=== PATIENT | female | born 1955 | race Caucasian/White ===

== ENCOUNTER 2017-04-13 11:17 | Emergency (ER) | payer OTHER ==
--- NOTE | 2017-04-13 11:35 | PDOC ---
History of Present Illness - General History Source: Patient, Family Exam Limitations: No Limitations - History of Present Illness Initial Comments: 04/13/17 13:18 Patient is a 61 year old female with a significant past medical history of Stroke (february), HTN who presents to the ED with complaints of neck pain and headache beginning 2 weeks prior. Patient reports headaches began two weeks prior but intensified today during shinto. She states intermediary episodes of nausea and and blurred vision secondary to the head pain. She reports pain feels similar to stroke in mid February in the [place]. Patient reports taking tylenol to relieve head pain, with last ingestion being yesterday. Denies Chest pain, SOB, lightheadedness. Denies vomiting, chills. Denies injuries, trauma. Denies any other symptoms. Allergies: N/A <Reji Mitchell - Last Filed: 04/13/17 13:18> <Kelley Dodson - Last Filed: 04/13/17 14:27> - General Chief Complaint: Lightheaded Stated Complaint: NEAR SYNCOPE Time Seen by Provider: 04/13/17 11:35 Past History <Reji Mitchell - Last Filed: 04/13/17 13:18> - Psycho/Social/Smoking Cessation Hx Suicidal Ideation: No Smoking History: Never smoked <Kelley Dodson - Last Filed: 04/13/17 14:27> - Past Medical History Allergies/Adverse Reactions: Allergies Allergy/AdvReac Type Severity Reaction Status Date / Time No Known Allergies Allergy Verified 04/13/17 11:27 Home Medications: Ambulatory Orders Amlodipine Besylate 5 mg PO DAILY 04/13/17 Atorvastatin Calcium 40 mg PO DAILY 04/13/17 Carvedilol [Coreg] 25 mg PO DAILY 04/13/17 Cephalexin [Keflex] 500 mg PO BID #6 capsule 04/13/17 Clopidogrel Bisulfate [Plavix -] 75 mg PO DAILY 04/13/17 Piracetam 1,200 mg PO DAILY 04/13/17 Review of Systems - Review of Systems Able to Perform ROS?: Yes Comments:: 04/13/17 13:18 GENERAL/CONSTITUTIONAL: No fever or chills. No weakness. HEAD, EYES, EARS, NOSE AND THROAT: + Headache.+Altered vision (secondary to headache). No ear pain or discharge. No sore throat. GASTROINTESTINAL: No nausea, vomiting, diarrhea or constipation. GENITOURINARY: No dysuria, frequency, or change in urination. CARDIOVASCULAR: No chest pain or shortness of breath. RESPIRATORY: No cough, wheezing, or hemoptysis. MUSCULOSKELETAL: No joint or muscle swelling or pain. No neck or back pain. SKIN: No rash NEUROLOGIC: No headache, vertigo, loss of consciousness, or change in strength/ sensation. ENDOCRINE: No increased thirst. No abnormal weight change. HEMATOLOGIC/LYMPHATIC: No anemia, easy bleeding, or history of blood clots. ALLERGIC/IMMUNOLOGIC: No hives or skin allergy. All Other Systems: Reviewed and Negative <Reji Mitchell - Last Filed: 04/13/17 13:18> *Physical Exam - Vital Signs Last Vital Signs Temp Pulse Resp BP Pulse Ox 97.5 F L 64 19 134/69 99 04/13/17 11:28 04/13/17 11:28 04/13/17 11:28 04/13/17 11:28 04/13/17 11:28 - Physical Exam Comments: 04/13/17 13:19 GENERAL: Awake, alert, and fully oriented, in no acute distress HEAD: + Tender palpations to left and right of trapezius. No meningeal signs No signs of trauma EYES: PERRLA, EOMI, sclera anicteric, conjunctiva clear ENT: Auricles normal inspection, hearing grossly normal, nares patent, oropharynx clear without exudates. Moist mucosa NECK: Normal ROM, supple, no lymphadenopathy, JVD, or masses BACK: No C spine or L spine tenderness LUNGS: Breath sounds equal, clear to auscultation bilaterally. No wheezes, and no crackles HEART: Regular rate and rhythm, normal S1 and S2, no murmurs, rubs or gallops ABDOMEN: Soft, nontender, normoactive bowel sounds. No guarding, no rebound. No masses EXTREMITIES: + 5/5 strength in all upper and lower extremities. Normal range of motion, no edema. No clubbing or cyanosis. No cords, erythema, or tenderness NEUROLOGICAL: Cranial nerves II through XII grossly intact. Normal speech, normal gait SKIN: Warm, Dry, normal turgor, no rashes or lesions noted. <Reji Mitchell - Last Filed: 04/13/17 13:18> - Vital Signs Last Vital Signs Temp Pulse Resp BP Pulse Ox 97.5 F L 64 19 134/69 99 04/13/17 11:28 04/13/17 11:28 04/13/17 11:28 04/13/17 11:28 04/13/17 11:28 <Kelley Dodson - Last Filed: 04/13/17 14:27> Heart Score/ECG Review - ECG Intrepretation Comment:: 04/13/17 12:10 sinus at 64, nl axis, nl interval, t wave inversions v2-3, no prior ekgs <Kelley Dodson - Last Filed: 04/13/17 14:27> ED Treatment Course - LABORATORY CBC & Chemistry Diagram: 04/13/17 12:00 04/13/17 11:49 - ADDITIONAL ORDERS Additional order review: Laboratory Results 04/13/17 04/13/17 04/13/17 12:03 12:03 11:49 Sodium 138 Potassium 4.0 Chloride 102 Carbon Dioxide 29 Anion Gap 7 L BUN 13 Creatinine 0.5 L Creat Clearance w eGFR > 60 Random Glucose 102 Calcium 8.9 Magnesium 2.0 Total Bilirubin 0.4 AST 40 H ALT 92 H Alkaline Phosphatase 119 H Creatine Kinase 112 Troponin I < 0.02 Total Protein 7.1 Albumin 3.9 Urine Color Straw Urine Appearance Clear Urine pH 7.0 Urine Protein Negative Urine Glucose (UA) Negative Urine Ketones Negative Urine Blood Negative Urine Nitrite Negative Urine Bilirubin Negative Urine Urobilinogen Negative Ur Leukocyte Esterase 1+ H 04/13/17 12:00 RBC 4.31 MCV 89.5 MCHC 34.1 RDW 12.9 MPV 8.3 Neutrophils % 75.9 Lymphocytes % 16.3 Monocytes % 5.7 Eosinophils % 1.5 Basophils % 0.6 - Medications Given in the ED: ED Medications Discontinued Medications Generic Name Dose Route Start Last Admin Trade Name Freq PRN Reason Stop Dose Admin Acetaminophen 975 mg 04/13/17 12:04 04/13/17 12:25 Tylenol - PO 04/13/17 12:05 975 mg ONCE ONE Administration Diphenhydramine HCl 12.5 mg 04/13/17 12:03 04/13/17 12:29 Benadryl Injection - IVPB 04/13/17 12:04 12.5 mg ONCE ONE Administration Metoclopramide HCl 10 mg 04/13/17 12:03 04/13/17 12:26 Reglan Injection - IVPB 04/13/17 12:04 10 mg ONCE ONE Administration Sodium Chloride 1,000 ml 04/13/17 12:03 04/13/17 12:15 Normal Saline - IV 04/13/17 12:04 1,000 ml ONCE ONE Administration <Reij Mitchell - Last Filed: 04/13/17 13:18> - LABORATORY CBC & Chemistry Diagram: 04/13/17 12:00 04/13/17 11:49 <Kelley Dodson - Last Filed: 04/13/17 14:27> Medical Decision Making - Medical Decision Making 04/13/17 13:08 a/p: 61yo female with worsening toribio x 2 weeks. No meningeal signs. No f/c. No recent illnesses. Doubt subarachnoid given gradual progression of TORIBIO and no thunderclap toribio. -ct head -labs -pain control -reassess -ekg given female, age, and nausea 04/13/17 14:14 re-eval: labs and ct reviewed with the patient. pt with mild UTI. will start abx. Pt states toribio and pain have resolved. No nausea. Pts abd soft. Pt denies RUQ pain. Discussed LFT findings. Pt states she will follow up with her PMD for further eval of mildly elevated LFT. Pt requesting to go home. Discussed all reasons to return to the ED and need for follow up. Answered all questions. Pt stable for d/c to home. Daughter and patient verbalize understanding of instructions. Neck supple. No meningeal signs. <Kelley Dodson - Last Filed: 04/13/17 14:27> *DC/Admit/Observation/Transfer - Attestations Scribe Attestion: 04/13/17 13:19 Documentation prepared by Reji Mitchell, acting as medical transcriber for Kelley Dodson DO, MD. <Reji Mitchell - Last Filed: 04/13/17 13:18> - Discharge Dispostion Admit: No - Attestations Physician Attestion: 04/13/17 11:35 I, Dr. Kelley Kurkowski, DO, attest that this document has been prepared under my direction and personally reviewed by me in its entirety. I further attest, that it accurately reflects all work, treatment, procedures and medical decision -making performed by me. 04/13/17 13:09 <Kelley Dodson - Last Filed: 04/13/17 14:27> Diagnosis at time of Disposition: UTI (urinary tract infection) Qualifiers: Urinary tract infection type: site unspecified Hematuria presence: without hematuria Qualified Code(s): N39.0 - Urinary tract infection, site not specified Cephalgia Qualifiers: Headache type: unspecified Headache chronicity pattern: unspecified pattern Intractability: not intractable Qualified Code(s): R51 - Headache - Discharge Dispostion Disposition: HOME Condition at time of disposition: Stable - Prescriptions Prescriptions: Cephalexin [Keflex] 500 mg PO BID #6 capsule - Referrals Referrals: Angelita Bhagat MD [Staff Physician] - - Patient Instructions Printed Discharge Instructions: DI for Headache Additional Instructions: Please take all meds as prescribed. Please follow up with your primary care physician this week. Please return to the ED with any further concerns.
[2017-04-13 11:36] VITALS: TEMP 97.5; BMI 28.1
[2017-04-13] MEDS ORDERED: METOCLOPRAMIDE HCL INJECTION 10 MG/2 ML VIAL IVPB ONE (12:03)
[2017-04-13] MEDS ORDERED: SODIUM CHLORIDE 0.9% 1000 ML INFUS.BAG IV ONE (12:03)
[2017-04-13] MEDS ORDERED: ACETAMINOPHEN 325 MG TABLET (FP) PO ONE (12:04)
--- NOTE | 2017-04-13 12:07 | EKG ---
Test Reason : Blood Pressure : / mmHG Vent. Rate : 064 BPM Atrial Rate : 064 BPM P-R Int : 176 ms QRS Dur : 084 ms QT Int : 426 ms P-R-T Axes : 032 046 050 degrees QTc Int : 439 ms NORMAL SINUS RHYTHM NONSPECIFIC T WAVE ABNORMALITY ABNORMAL ECG NO PREVIOUS ECGS AVAILABLE REPEAT EKG IF CLINICALLY INDICATED Confirmed by LIVAN COFFEY MD ([id number]) on 04/13/2017 12:06:48 PM Also confirmed by LIVAN COFFEY MD ([id number]) on 04/13/2017 12:13:17 PM Referred By: Confirmed By:LIVAN COFFEY MD
[2017-04-13] MEDS ORDERED: METOCLOPRAMIDE HCL INJECTION 10 MG/2 ML VIAL ONE (12:18)
[2017-04-13] MEDS ORDERED: ACETAMINOPHEN 325 MG TABLET (FP) ONE (12:18)
[2017-04-13 12:36] LABS: BASOPHIL 0.6 % (0-2.0); EOSINOPHIL 1.5 % (0-4.5); MCH 30.5 pg (25.7-33.7); MCHC 34.1 g/dl (32.0-36.0); MEAN CELL VOLUME 89.5 fl (80-96); MEAN PLT VOLUME 8.3 fl (7.5-11.1); NEUTROPHILS 75.9 % (42.8-82.8); PLATELET COUNT 231 K/MM3 (134-434); RDW 12.9 % (11.6-15.6); WHITE BLOOD COUNT 8.2 K/mm3 (4.0-10.0)
[2017-04-13 13:00] LABS: ALBUMIN 3.9 g/dl (3.4-5.0); ALK PHOS 119 U/L (45-117); ANION GAP 7 (8-16); BILIRUBIN,TOTAL 0.4 mg/dL (0.2-1.0); CALCIUM 8.9 mg/dL (8.5-10.1); CO2 29 mmol/L (21-32); CREATININE 0.5 mg/dL (0.55-1.02); GLUCOSE,RANDOM 102 mg/dL (74-106); SGOT/AST 40 U/L (15-37); SGPT/ALT 92 U/L (12-78); TOT PROT 7.1 g/dl (6.4-8.2)
[2017-04-13 13:03] LABS: CPK 112 IU/L (26-192); TROPONIN I < 0.02 ng/ml (0.00-0.05)
[2017-04-13 13:08] LABS: URINE APPEARANCE CLEAR; URINE BILIRUBIN NEGATIVE (NEGATIVE); URINE BLOOD NEGATIVE (NEGATIVE); URINE COLOR STRAW; URINE GLUCOSE (UA) NEGATIVE (NEGATIVE); URINE KETONE NEGATIVE (NEGATIVE); URINE NITRITE NEGATIVE (NEGATIVE); URINE PROTEIN NEGATIVE (NEGATIVE); URINE UROBILINOGEN NEGATIVE mg/dL (0.2-1.0)
[2017-04-13 13:16] LABS: URINE LEUK ESTERASE 1+ (NEGATIVE)
[2017-04-13 13:17] LABS: URINE RBC <1 /hpf (0-3); URINE WBC 4 /hpf (3-5)
[2017-04-13] MEDS ORDERED: CEPHALEXIN MONOHYDRATE 500 MG CAPSULE (UD) PO ONE (14:13)
[2017-04-13] MEDS ORDERED: IBUPROFEN 600 MG TABLET (FP) PO ONE ×2 (14:14→14:24)
[2017-04-13] MEDS ORDERED: CEPHALEXIN MONOHYDRATE 250 MG CAPSULE (FP) ONE (14:24)
[2017-04-13 14:44] VITALS: BP 136/72; PULSE 75
== END 2017-04-13 14:44 | disposition home or self-care (01) ==
LOC: JER 11:17
PROC: 3E033GC Introduction of Other Therapeutic Substance into Peripheral Vein, Percutaneous Approach (ICD-10-PCS; principal; 2017-04-13)
DX: R51 Headache (principal); N39.0 Urinary tract infection, site not specified
CPT/HCPCS: 36415; 70450-TC; 80053; 81003; 81015; 83735; 84484; 85025; 93005; 93010; 99283-25

== ENCOUNTER 2018-01-04 08:56 | Emergency (ER) | payer OTHER ==
[2018-01-04 09:02] VITALS: TEMP 98.3; BMI 25.9
--- NOTE | 2018-01-04 09:10 | PDOC ---
History of Present Illness - General Chief Complaint: Lightheaded Stated Complaint: DIZZINESS&NAUSEA Time Seen by Provider: 01/04/18 09:09 - History of Present Illness Initial Comments: 01/04/18 09:09 Ms. Brewster is a 62 yo female w/ pmh of HTN, HLD, arthritis who presents for evaluation of 1 day history of nausea with dizziness. She reports this started yesterday evening and she noted her BP to be elevated on her home BP cuff although she cannot recall the value. She further reports she has had urinary changes lately with only small amounts of urine coming out although she has been drinking her normal amount of fluids. The patient denies chest pain, shortness of breath, and headache. Denies fever, chills, nausea, vomit, diarrhea and constipation. Denies dysuria, frequency, urgency and hematuria. Allergies: NKDA Past History - Past Medical History Allergies/Adverse Reactions: Allergies Allergy/AdvReac Type Severity Reaction Status Date / Time No Known Allergies Allergy Verified 01/04/18 08:58 Home Medications: Ambulatory Orders Amlodipine Besylate 5 mg PO DAILY 04/13/17 Carvedilol [Coreg] 25 mg PO DAILY 04/13/17 Rosuvastatin Calcium 40 mg PO HS 07/19/17 Meclizine HCl [Antivert -] 25 mg PO TID PRN #21 tablet 01/04/18 COPD: No HTN: Yes Hypercholesterolemia: Yes Other medical history: ARTHRITIS - Suicide/Smoking/Psychosocial Hx Smoking History: Never smoked Review of Systems - Review of Systems Comments:: 01/04/18 09:09 GENERAL/CONSTITUTIONAL: No fever or chills. No weakness. HEAD, EYES, EARS, NOSE AND THROAT: No change in vision. No ear pain or discharge. No sore throat. CARDIOVASCULAR: No chest pain or shortness of breath RESPIRATORY: No cough, wheezing, or hemoptysis. GASTROINTESTINAL: +Nausea without vomiting, diarrhea or constipation. GENITOURINARY: +As described above; otherwise no dysuria, frequency, or change in urination. MUSCULOSKELETAL: No joint or muscle swelling or pain. No neck or back pain. SKIN: No rash NEUROLOGIC: +Dizziness as described. No headache, vertigo, loss of consciousness , or change in strength/sensation. ENDOCRINE: No increased thirst. No abnormal weight change HEMATOLOGIC/LYMPHATIC: No anemia, easy bleeding, or history of blood clots. ALLERGIC/IMMUNOLOGIC: No hives or skin allergy. 01/04/18 09:22 *Physical Exam - Vital Signs Last Vital Signs Temp Pulse Resp BP Pulse Ox 98.3 F 67 19 145/82 96 01/04/18 08:58 01/04/18 08:58 01/04/18 08:58 01/04/18 08:58 01/04/18 08:58 - Physical Exam Comments: 01/04/18 09:10 GENERAL: Awake, alert, and fully oriented, in no acute distress HEAD: No signs of trauma, normocephalic, atraumatic EYES: PERRLA, EOMI, sclera anicteric, conjunctiva clear ENT: Auricles normal inspection, hearing grossly normal, nares patent, oropharynx clear without exudates. Moist mucosa NECK: Normal ROM, supple, no lymphadenopathy, JVD, or masses LUNGS: No distress, speaks full sentences, clear to auscultation bilaterally HEART: Regular rate and rhythm, normal S1 and S2, no murmurs, rubs or gallops, peripheral pulses normal and equal bilaterally. ABDOMEN: Soft, nontender, normoactive bowel sounds. No guarding, no rebound. No masses EXTREMITIES: Normal inspection, Normal range of motion, no edema. No clubbing or cyanosis. NEUROLOGICAL: +Increased dizziness on attempting to track eyes left/right. Cranial nerves II through XII grossly intact. Normal speech, normal gait, no focal sensorimotor deficits SKIN: Warm, Dry, normal turgor, no rashes or lesions noted. ED Treatment Course - LABORATORY CBC & Chemistry Diagram: 01/04/18 09:24 01/04/18 09:24 Medical Decision Making - Medical Decision Making 01/04/18 12:05 Ms. Brewster is a 62 yo female w/ pmh as described presenting with symptoms c/w vertigo. EKG/Cardiac labs/Head CT sent to r/o acute process. Head CT negative, EKG unconcerning, labs grossly wnl as below. Patient reporting resolution of symptoms after 25mg of meclizine. D/C-ing w/ instructions to f/u with neurology for further evaluation. Patient verbalized understanding and agreement and will comply. *DC/Admit/Observation/Transfer Diagnosis at time of Disposition: Vertigo - Discharge Dispostion Disposition: HOME - Referrals Referrals: Angelita Bhagat MD [Primary Care Provider] - Alexander Garzon MD [Staff Physician] - - Patient Instructions Printed Discharge Instructions: DI for Vertigo Additional Instructions: You were seen in the ER today and diagnosed with vertigo. A prescription has been sent to your pharmacy for meclizine. Take medications as written. Follow- up with Neurology as discussed for further evaluation. Return to ER if any increased dizziness not controllable with medication, fever, chills, or any other concerning symptoms. Print Language: BULGARIAN - Post Discharge Activity
[2018-01-04] MEDS ORDERED: MECLIZINE HCL 25 MG TABLET (FP) PO ONE (09:23)
[2018-01-04] MEDS ORDERED: MECLIZINE HCL 25 MG TABLET (FP) ONE (09:29)
[2018-01-04 09:35] LABS: BASO % 1.1 % (0-2.0); EOS % 1.6 % (0-4.5); HEMATOCRIT 39.7 % (32.4-45.2); HEMOGLOBIN 13.3 GM/dL (10.7-15.3); LYMPH % 29.7 % (8-40); MCH 29.9 pg (25.7-33.7); MCHC 33.6 g/dl (32.0-36.0); MEAN CELL VOLUME 89.2 fl (80-96); MEAN PLT VOLUME 8.8 fl (7.5-11.1); MONO % 8.1 % (3.8-10.2); NEUT % 59.5 % (42.8-82.8); PLATELET COUNT 259 K/MM3 (134-434); RBC 4.44 M/mm3 (3.60-5.2); RDW 13.1 % (11.6-15.6); WHITE BLOOD COUNT 4.8 K/mm3 (4.0-10.0)
[2018-01-04] MEDS ORDERED: SODIUM CHLORIDE 1,000 ML IV STA (09:38)
--- NOTE | 2018-01-04 09:48 | PDOC ---
Attending Attestation - HPI HPI: 01/04/18 09:53 The patient is a 62 year old female with significant history of hypertension, hyperlipidemia, who presents to the ED complaining of a 1 day history of room- spinning dizziness. Dizziness is worse with movement, improved with rest, and associated with nausea. No vomiting. No headache, blurred vision, or numbness or tingling. No chest pain or shortness of breath. No fever or chills. PCP: Dr. Frances - Physicial Exam PE: 01/04/18 10:01 Vitals: Triage vital signs reviewed General Appearance: No acute distress, well nourished, well developed Head: Atraumatic Eyes: Pupils equal reactive round, extraocular movement intact Neck: Supple; No nuchal rigidity Chest Wall: Nontender Cardiac: Regular rate and rhythm, no murmurs, no rubs, no gallops Lungs: Clear to auscultation bilateral, good air movement bilaterally Abdomen: Soft, nondistended, normal bowel sounds, nontender to palpation Extremities: Full range of motion to all extremities, no cyanosis, clubbing, or edema Skin: Warm and dry, no rashes or lesions, no rash, no petechiae Neuro: +[place] Hallpike when head turned to the right. AOX3; Cranial Nerves 2-12 grossly intact, Strength intact to all extremities, Sensation intact to all extremities, gait deferred. Psych: Normal mood, normal affect - Medical Decision Making 01/04/18 10:03 Documentation prepared by Jennifer Davis, acting as medical office receptionist assistant for Rip Jorge MD. 62 year old female here with 1 day of vertigo that is worse with positional changes. Plan: Head CT, EKG, CBC, CMP, cardiac markers, UA Meclizine, Keara's maneuever, reassess 01/04/18 11:[address], reviewed and interpreted by Dr. Deras. Impression: No significant interval change or acute intracranial pathology is identified. Correlate clincically to determine further evaluation and follow up. <Jennifer Davis - Last Filed: 01/04/18 11:42> - Resident Resident Name: Gil Gage - ED Attending Attestation I have performed the following: I have examined & evaluated the patient, The case was reviewed & discussed with the resident, I agree w/resident's findings & plan, Exceptions are as noted - Medical Decision Making 01/04/18 17:03 History examination most consistent with benign positional vertigo. Positive Delaney -Hallpike on examination Status post IV fluids meclizine and several attempts at Keara maneuver patient feels much better. No ambulating around the emergency department comfortably with no symptoms. Labs CT all within normal limits. EKG nonischemic Patient discharged with neurology follow-up meclizine and instructions for Keara maneuver at home Findings, the need for follow-up, strict return instructions discussed with patient and family. <Rip Jorge - Last Filed: 01/04/18 17:05>
[2018-01-04 09:50] LABS: URINE APPEARANCE CLEAR; URINE BILIRUBIN NEGATIVE (<2.0 mg/dL); URINE COLOR LTYELLOW; URINE GLUCOSE (UA) NEGATIVE (NEGATIVE); URINE KETONE NEGATIVE (NEGATIVE); URINE LEUK ESTERASE NEGATIVE (NEGATIVE); URINE NITRITE NEGATIVE (NEGATIVE); URINE PROTEIN NEGATIVE (NEGATIVE); URINE UROBILINOGEN NEGATIVE mg/dL (0.2-1.0)
[2018-01-04 10:15] LABS: CHLORIDE 107 mmol/L (98-107); POTASSIUM 4.1 mmol/L (3.5-5.1); SODIUM 141 mmol/L (136-145)
[2018-01-04 10:38] LABS: ALK PHOS 136 U/L (45-117); ANION GAP 5 (8-16); BILIRUBIN,TOTAL 0.5 mg/dL (0.2-1.0); BLOOD UREA NITROGEN 12 mg/dL (7-18); CALCIUM 8.8 mg/dL (8.5-10.1); CO2 29 mmol/L (21-32); CREATININE 0.6 mg/dL (0.55-1.02); GLUCOSE,RANDOM 108 mg/dL (74-106); SGOT/AST 15 U/L (15-37); SGPT/ALT 26 U/L (12-78); TOT PROT 7.2 g/dl (6.4-8.2)
[2018-01-04 12:33] VITALS: BP 173/78; PULSE 75
--- NOTE | 2018-01-04 20:42 | EKG ---
Test Reason : Blood Pressure : / mmHG Vent. Rate : 058 BPM Atrial Rate : 058 BPM P-R Int : 180 ms QRS Dur : 086 ms QT Int : 442 ms P-R-T Axes : 055 044 052 degrees QTc Int : 433 ms SINUS BRADYCARDIA NONSPECIFIC T WAVE ABNORMALITY ABNORMAL ECG WHEN COMPARED WITH ECG OF 19-JUL-2017 22:52, NO SIGNIFICANT CHANGE WAS FOUND Confirmed by TD ESTEBAN MD ([id number]) on 01/04/2018 8:42:24 PM Referred By: Confirmed By:TD ESTEBAN MD
== END 2018-01-04 12:20 | disposition home or self-care (01) ==
LOC: JER 08:56
PROC: 3E0337Z Introduction of Electrolytic and Water Balance Substance into Peripheral Vein, Percutaneous Approach (ICD-10-PCS; principal; 2018-01-04)
DX: R42 Dizziness and giddiness (principal); I10 Essential (primary) hypertension; E78.5 Hyperlipidemia, unspecified; E78.00 Pure hypercholesterolemia, unspecified; M12.9 Arthropathy, unspecified
CPT/HCPCS: 36415; 70450-TC; 80053; 81003; 82550; 84484; 85025; 87086; 93005; 93010; 96360; 99285-25; J7030

== ENCOUNTER → 2018-06-30 | Day surgery (SDC) | payer OTHER ==
--- NOTE | 2018-07-03 09:47 | PATH ---
Cytology Non-Gynecological Report Patient Name: RON TURNER [facility]. Rec. #: [id number] /Age/Gender: 1955 (Age: 63) / F Account: [id number] Location: RADIOLOGY INTER Taken: 06/30/2018 Received: 06/30/2018 Reported: 07/03/2018 Physicians: Vincent Steward M.D. Specimen(s) Received LEFT THYROID FNA 2.77 X 1.84 X 2.57CM Clinical History Left thyroid nodule Final Diagnosis THYROID, LEFT, FINE NEEDLE ASPIRATION: SATISFACTORY FOR EVALUATION BETHESDA CLASS II: BENIGN CYTOLOGIC FINDINGS ARE CONSISTENT WITH A BENIGN FOLLICULAR NODULE. SMALL FOLLICULAR CELLS, HURTHLE CELLS, AND COLLOID PRESENT, IN A BACKGROUND OF CHRONIC LYMPHOCYTIC THYROIDITIS. Electronically Signed Isidro Gee M.D. Gross Description Received are eight direct smears, four of which are air-dried and Diff-Quik stained, and four of which are alcohol fixed and Pap stained. Also received is 20 ml of bloody formalin from which one cellblock is prepared.
== END | disposition home or self-care (01) ==
LOC: JRADIR 08:15 → EDSTATUS 09:00
PROVIDERS: ATTEND Internal Medicine
PROC: 0G9G3ZX Drainage of Left Thyroid Gland Lobe, Percutaneous Approach, Diagnostic (ICD-10-PCS; principal; 2018-06-30)
DX: E04.1 Nontoxic single thyroid nodule (principal)
CPT/HCPCS: 76942; 88173; 88305-TC

== ENCOUNTER 2018-08-31 23:45 | Observation (INO) | payer OTHER ==
[2018-09-01 00:35] VITALS: BMI 26.6
--- NOTE | 2018-09-01 00:46 | PDOC ---
History of Present Illness - General Chief Complaint: Blood Pressure Problem Stated Complaint: BLOOD PRESSURE PROBLEM Time Seen by Provider: 09/01/18 00:46 History Source: Patient Exam Limitations: No Limitations - History of Present Illness Initial Comments: Pt is a 63 yo F, with PMH of HTN, HLD, and CVA(? pt calling it "pre-stroke" which occurred in [place]), who is presenting with complaints of elevated BP (190-200 systolic at home), frontal head pressure, and L-sided chest pain since 10 pm. Pt states she was watching television, when she developed a pressure-like pain in her L-chest, which radiated to her epigastric area ("epigastric emptiness"), and her L arm. It was accompanied by nausea and shortness of breath, but no vomiting. When she took her BP, it was systolic 190s , and she re-took it twice with similar results, after taking an additional 5 mg PO amlodipine. Pt complains currently only of nausea, head pressure, and "emptiness in her stomach". Pt denies any recent fevers/chills, vision changes, syncope, palpitations, vomiting, urinary symptoms, diarrhea/constipation, or leg swelling. Social: Pt denies any cigarette, alcohol, or drug use. Pt denies any recent travel or sick contacts. Surgical: hysterectomy; no cardiac or neuro surgeries. Family: no relevant history. 09/01/18 02:23 Past History - Travel Traveled outside of the country in the last 30 days: No Close contact w/someone who was outside of country & ill: No - Past Medical History Allergies/Adverse Reactions: Allergies Allergy/AdvReac Type Severity Reaction Status Date / Time No Known Allergies Allergy Verified 09/01/18 00:35 Home Medications: Ambulatory Orders Amlodipine Besylate 5 mg PO DAILY 04/13/17 Carvedilol [Coreg] 25 mg PO DAILY 04/13/17 Rosuvastatin Calcium 40 mg PO HS 07/19/17 Meclizine HCl [Antivert -] 25 mg PO TID PRN #21 tablet 01/04/18 COPD: No HTN: Yes Hypercholesterolemia: Yes - Suicide/Smoking/Psychosocial Hx Smoking History: Never smoked Have you smoked in the past 12 months: No Information on smoking cessation initiated: No Hx Alcohol Use: No Drug/Substance Use Hx: No Review of Systems - Review of Systems Able to Perform ROS?: Yes Is the patient limited Lao proficient: No Constitutional: Yes: Weight Stable. No: Chills, Diaphoresis, Fever, Loss of Appetite, Weakness HEENTM: No: Recent change in vision, Double Vision, Nose Congestion, Throat Pain , Throat Swelling, Difficulty Swallowing Respiratory: Yes: Shortness of Breath, SOB at Rest. No: Cough, Orthopnea, Wheezing Cardiac (ROS): Yes: See HPI, Chest Pain (with radiation to L arm + nausea). No : Edema, Irregular Heart Rate, Lightheadedness, Palpitations, Syncope, Chest Tightness ABD/GI: Yes: Nausea, Abdominal cramping (epigastric pain). No: Abdominal Distended, Blood Streaked Bowels, Constipated, Diarrhea, Poor Appetite, Poor Fluid Intake, Rectal Bleeding, Vomiting, Indigestion, Tarry Stools : No: Burning, Dysuria, Frequency, Hematuria, Pain, Urgency Musculoskeletal: No: Back Pain, Joint Pain Integumentary: No: Rash Neurological: No: Headache, Numbness, Paresthesia Psychiatric: No: Sleep Pattern Change, Change in Appetite Endocrine: No: Increased Urine, Change in Weight Hematologic/Lymphatic: No: Anemia, Blood Clots, Easy Bleeding, Easy Bruising All Other Systems: Reviewed and Negative *Physical Exam - Vital Signs Last Vital Signs Temp Pulse Resp BP Pulse Ox 98.5 F 71 19 191/92 H 98 08/31/18 23:45 08/31/18 23:45 08/31/18 23:45 08/31/18 23:45 08/31/18 23:45 Moderate Sedation - Procedure Monitoring Vital Signs: Procedure Monitoring Vital Signs Temperature 98.5 F 08/31/18 23:45 Pulse Rate 71 08/31/18 23:45 Respiratory Rate 19 08/31/18 23:45 Blood Pressure 191/92 H 08/31/18 23:45 O2 Sat by Pulse Oximetry (%) 98 08/31/18 23:45 ED Treatment Course - LABORATORY CBC & Chemistry Diagram: 09/01/18 01:27 09/01/18 01:27 Medical Decision Making - Medical Decision Making Pt was seen at bedside, also will be seen by attending Dr. Holder. Pt presenting with complaints of elevated BP (190-200 systolic at home), frontal head pressure, and L-sided chest pain since 10 pm. Pt states she was watching television, when she developed a pressure-like pain in her L-chest, which radiated to her epigastric area ("epigastric emptiness"), and her L arm. It was accompanied by nausea and shortness of breath, but no vomiting. When she took her BP, it was systolic 190s, and she re-took it twice with similar results, after taking an additional 5 mg PO amlodipine. Pt complains currently only of nausea, head pressure, and "emptiness in her stomach". Pt denies any recent fevers/chills, vision changes, syncope, palpitations, vomiting, urinary symptoms , diarrhea/constipation, or leg swelling. Repeat BP at bedside 176/90, O2 100% on RA. Pt afebrile. PE showed pt alert and oriented. technology services manager generally intact, muscular strength and sensation intact. Clear heart and lung sounds, no JVD, b/l pedal edema, or heart murmur. No abdominal or CVA tenderness to palpation, no rebound, no guarding. Considering ACS Ordered work-up including CBC, CMP, lipase, cardiac profile, UA, urine culture. Provided 0.4 mg SL nitro and 650 mg PO tylenol for improvement of chest pressure. Will continue to reassess pt and monitor for symptomatic improvement. ECG: NSR, intervals WNL. TWIs V1-V3 (present on prior ECG); no significant ST segment changes. No significant changes from prior ECG. 09/01/18 01:28 Repeat BP after first SL NG is 133/94. Pt states her discomfort is much improved , no further nausea or headache. CBC and CMP WNL. Coags WNL. First troponin <.02 BNP 41 UA: LE 1+, WBC 14, nitrite negative. Pt asymptomatic. Prior cultures showed no growth. CT scanner occupied, pt awaiting scan. 09/01/18 02:[address] scan negative. Paging hospitalist team for admission (Dr. Frances PCP). 09/01/18 03:56 Hospitalist team will come to see the pt. Admission order changed. 09/01/18 04:20 *DC/Admit/Observation/Transfer - Discharge Dispostion Condition at time of disposition: Fair - Referrals Referrals: Angelita Bhagat MD [Primary Care Provider] - - Patient Instructions - Post Discharge Activity
--- NOTE | 2018-09-01 01:15 | PDOC ---
Attending Attestation - Resident Resident Name: without #l - ED Attending Attestation I have performed the following: I have examined & evaluated the patient, The case was reviewed & discussed with the resident, I agree w/resident's findings & plan - HPI HPI: 09/01/18 03:55 63-year-old female complaining of an episode of shortness of breath and chest discomfort, patient checked her blood pressure at home and found it to be elevated. - Physicial Exam PE: 09/01/18 03:56 GENERAL: Awake, in no acute distress HEAD: No signs of trauma EYES: ENT:clear without exudates. Moist mucosa NECK: Normal ROM, LUNGS:. Normal work of breathing. HEART: Regular rate and rhythm, ABDOMEN: Soft, nondistended CHEST WALL: BACK: No midline tenderness. EXTREMITIES:. No erythema, or tenderness NEUROLOGICAL: Alert, SKIN: Warm, Dry - Medical Decision Making 09/01/18 03:57 63-year-old female with chest pain and hypertension EKG on arrival shows a normal sinus rhythm at 66 bpm with no acute ST elevations There are T wave abnormalities in leads V2 and V3 which are largely unchanged when compared to previous dated 01/04/2018 CT scan of the brain showed no acute abnormality Patient is chest pain-free in the emergency department after nitroglycerin sublingual as well as Tylenol by mouth Due to elevated blood pressure and chest pain as well as EKG abnormalities will be admitted for serial enzymes Impression chest pain Hypertension
[2018-09-01] MEDS ORDERED: ACETAMINOPHEN 325 MG TABLET (FP) PO ONE (01:21)
[2018-09-01 01:33] LABS: BASO % 0.7 % (0-2.0); EOS % 2.3 % (0-4.5); HEMATOCRIT 40.6 % (32.4-45.2); HEMOGLOBIN 13.9 GM/dL (10.7-15.3); LYMPH % 35.6 % (8-40); MCH 30.4 pg (25.7-33.7); MCHC 34.3 g/dl (32.0-36.0); MEAN CELL VOLUME 88.5 fl (80-96); MEAN PLT VOLUME 8.5 fl (7.5-11.1); NEUT % 54.4 % (42.8-82.8); PLATELET COUNT 280 K/MM3 (134-434); RBC 4.59 M/mm3 (3.60-5.2); RDW 13.7 % (11.6-15.6); WHITE BLOOD COUNT 4.8 K/mm3 (4.0-10.0)
[2018-09-01] MEDS ORDERED: NITROGLYCERIN SUBLINGUAL 1/150 0.4 MG TAB ONE (01:39)
[2018-09-01] MEDS ORDERED: NITROGLYCERIN SUBLINGUAL 1/150 0.4 MG TAB SL ONE (01:39)
[2018-09-01 01:40] LABS: URINE APPEARANCE CLEAR; URINE BILIRUBIN NEGATIVE (<2.0 mg/dL); URINE COLOR STRAW; URINE GLUCOSE (UA) NEGATIVE (NEGATIVE); URINE KETONE NEGATIVE (NEGATIVE); URINE LEUK ESTERASE 1+ (NEGATIVE); URINE NITRITE NEGATIVE (NEGATIVE); URINE PROTEIN NEGATIVE (NEGATIVE); URINE UROBILINOGEN NEGATIVE mg/dL (0.2-1.0)
[2018-09-01] MEDS: NITROGLYCERIN SUBLINGUAL 1/200 0.3 MG BTL SL ONE ×2 (01:45)
[2018-09-01 02:06] LABS: INR 1.01 (0.83-1.09); PROTHROMBIN TIME (PATIENT) 11.9 SEC (9.7-13.0)
[2018-09-01 02:09] LABS: EPI CELLS RARE /HPF (FEW)
[2018-09-01 02:11] LABS: ALK PHOS 152 U/L (45-117); ANION GAP 8 MMOL/L (8-16); BILIRUBIN,TOTAL 0.2 mg/dL (0.2-1); BLOOD UREA NITROGEN 10 mg/dL (7-18); CALCIUM 8.9 mg/dL (8.5-10.1); CHLORIDE 106 mmol/L (98-107); CO2 29 mmol/L (21-32); CREATININE 0.5 mg/dL (0.55-1.3); GLUCOSE,RANDOM 112 mg/dL (74-106); LIPASE 218 U/L (73-393); N-TERMINAL BNP 41.8 pg/ml (5-125); POTASSIUM 3.8 mmol/L (3.5-5.1); SGOT/AST 22 U/L (15-37); SGPT/ALT 39 U/L (13-61); SODIUM 142 mmol/L (136-145); TOT PROT 7.5 g/dl (6.4-8.2)
--- NOTE | 2018-09-01 05:42 | HP ---
CHIEF COMPLAINT: elevated BP and L sided chest pain PCP: Dr. Frances HISTORY OF PRESENT ILLNESS: 63 y/o female with PMH of HTN, HLD, ?syncopal episode this past june presents to the ED with left sided exertional chest pain radiating to the arm with elevated BP (systolics 190-200). patient states that around 10 am yesterday morning she started having left sided chest pain that radiated down her arm associated with a headache and some nausea/epigastric discomfort. she took her BP at home and systolic was in the 190's so she took an extra amlodipine and retook her pressure around 30 mins later with no change so she came to the ER. Of note she had a cardiac workup 6 months ago ( she said nuclear tests were done which were all normal); and she recently saw her glass furnace tender last week at [facility] in [place] (however she does not recall the name of the glass furnace tender). she states that she has had these hypertensive episodes in the past where she gets headaches whenever her BP increases. she denies any sick contacts, no fevers/chills/vomiting/diarrhea ER course was notable for: (1)BP on arrival was 192/91; given 1 sublingual nitro and it went down to 133/94 (2)trop negative x2 ; no EKG changes (3)+ U/A with symptoms Recent Travel: went to the [facility] this past June PAST MEDICAL HISTORY: see above PAST SURGICAL HISTORY: c section Social History: Smoking:denies Alcohol:denies Drugs: denies Family History: high blood pressure Allergies No Known Allergies Allergy (Verified 09/01/18 00:35) HOME MEDICATIONS: Home Medications Medication Instructions Recorded Amlodipine Besylate 5 mg PO DAILY 04/13/17 Carvedilol [Coreg] 25 mg PO DAILY 04/13/17 Rosuvastatin Calcium 40 mg PO HS 07/19/17 Meclizine HCl [Antivert -] 25 mg PO TID PRN #21 tablet 01/04/18 REVIEW OF SYSTEMS CONSTITUTIONAL: Absent: fever, chills, diaphoresis, generalized weakness, malaise, loss of appetite, weight change HEENT: Absent: rhinorrhea, nasal congestion, throat pain, throat swelling, difficulty swallowing, mouth swelling, ear pain, eye pain, visual changes CARDIOVASCULAR: Present: chest pain, Absent: syncope, palpitations, irregular heart rate, lightheadedness, peripheral edema RESPIRATORY: Absent: cough, shortness of breath, dyspnea with exertion, orthopnea, wheezing, stridor, hemoptysis GASTROINTESTINAL: Present: epigastric discomfort Absent: abdominal pain, abdominal distension, nausea, vomiting, diarrhea, constipation, melena, hematochezia GENITOURINARY: Absent: dysuria, frequency, urgency, hesitancy, hematuria, flank pain, genital pain MUSCULOSKELETAL: Absent: myalgia, arthralgia, joint swelling, back pain, neck pain SKIN: Absent: rash, itching, pallor HEMATOLOGIC/IMMUNOLOGIC: Absent: easy bleeding, easy bruising, lymphadenopathy, frequent infections ENDOCRINE: Absent: unexplained weight gain, unexplained weight loss, heat intolerance, cold intolerance NEUROLOGIC: Present: headache Absent: focal weakness or paresthesias, dizziness, unsteady gait, seizure, mental status changes, bladder or bowel incontinence PSYCHIATRIC: Absent: anxiety, depression, suicidal or homicidal ideation, hallucinations. PHYSICAL EXAMINATION Vital Signs - 24 hr 08/31/18 09/01/18 23:45 01:37 Temperature 98.5 F Pulse Rate 71 Pulse Rate [ 61 Left Radial] Respiratory 19 18 Rate Blood Pressure 191/92 H Blood Pressure 186/88 H [Left Arm] O2 Sat by Pulse 98 99 Oximetry (%) GENERAL: Awake, alert, and fully oriented, in no acute distress. EYES: EOMI; PEERLA; no scleral icterus. NECK: no JVD, no lymphadenopathy. LUNGS: CTA B/L; no rales, rhonchi or wheezing. HEART: Regular rate and rhythm, normal S1 and S2 without murmur, rub or gallop. ABDOMEN: Soft, slight RUQ tenderness upon deep palpation; +BS in all 4 quadrants MUSCULOSKELETAL: Normal range of motion at all joints. No bony deformities or tenderness. No CVA tenderness. EXTREMITIES: warm; well-perfused, no clubbing.cyanosis or edema NEUROLOGICAL: Cranial nerves II-XII intact. Normal speech. Normal gait.sensation intact B/L; 5/5 strength B/L PSYCHIATRIC: Cooperative. Good eye contact. Appropriate mood and affect. SKIN: Warm, dry, normal turgor, no rashes or lesions noted, normal capillary refill. Laboratory Results - last 24 hr 09/01/18 09/01/18 09/01/18 01:27 01:27 01:27 WBC 4.8 RBC 4.59 Hgb 13.9 Hct 40.6 MCV 88.5 MCH 30.4 MCHC 34.3 RDW 13.7 Plt Count 280 MPV 8.5 Absolute Neuts (auto) 2.6 Neutrophils % 54.4 Lymphocytes % 35.6 Monocytes % 7.0 Eosinophils % 2.3 Basophils % 0.7 Nucleated RBC % 0 PT with INR 11.90 INR 1.01 Sodium 142 Potassium 3.8 Chloride 106 Carbon Dioxide 29 Anion Gap 8 BUN 10 Creatinine 0.5 L Creat Clearance w eGFR > 60 Random Glucose 112 H Calcium 8.9 Total Bilirubin 0.2 AST 22 ALT 39 Alkaline Phosphatase 152 H Creatine Kinase 118 Troponin I < 0.02 B-Natriuretic Peptide 41.8 Total Protein 7.5 Albumin 4.0 Lipase 218 Urine Color Urine Appearance Urine pH Ur Specific [place] Urine Protein Urine Glucose (UA) Urine Ketones Urine Blood Urine Nitrite Urine Bilirubin Urine Urobilinogen Ur Leukocyte Esterase Urine WBC (Auto) Urine RBC (Auto) Ur Epithelial Cells 09/01/18 01:32 WBC RBC Hgb Hct MCV MCH MCHC RDW Plt Count MPV Absolute Neuts (auto) Neutrophils % Lymphocytes % Monocytes % Eosinophils % Basophils % Nucleated RBC % PT with INR INR Sodium Potassium Chloride Carbon Dioxide Anion Gap BUN Creatinine Creat Clearance w eGFR Random Glucose Calcium Total Bilirubin AST ALT Alkaline Phosphatase Creatine Kinase Troponin I B-Natriuretic Peptide Total Protein Albumin Lipase Urine Color Straw Urine Appearance Clear Urine pH 7.0 Ur Specific [place] 1.011 Urine Protein Negative Urine Glucose (UA) Negative Urine Ketones Negative Urine Blood Negative Urine Nitrite Negative Urine Bilirubin Negative Urine Urobilinogen Negative Ur Leukocyte Esterase 1+ H Urine WBC (Auto) 14 Urine RBC (Auto) 1 Ur Epithelial Cells Rare ASSESSMENT/PLAN: 63 y/o female with PMH of HTN, HLD, ?syncopal episode, who presents to the ED with hypertensive emergency and L sided chest pain #Hypertensive emergency patients BP has decreased after receiving 1 sublingual nitro -trops negative X2 -increasing patients amlodipine from 5mg to 10mg daily -adding lisinopril 2.5 daily -c/w coreg 25 daily -ASA 81 daily -cardio consult -try and attempt to get records from patients outpatient glass furnace tender -monitor BP #HLD -c/w ezetimbe 10mg daily #UTI -1gram ceftriaxone given F/E/N not on fluids monitor electrolytes NPO (in case of possible stress test) DVT PPX: lovenox Problem List - Problem (1) Hypertension Code(s): I10 - ESSENTIAL (PRIMARY) HYPERTENSION Visit type - Emergency Visit Emergency Visit: Yes Care time: The patient presented to the Emergency Department on the above date and was hospitalized for further evaluation of their emergent condition. - New Patient This patient is new to me today: Yes Date on this admission: 09/01/18 - Critical Care Critical Care patient: No
[2018-09-01] MEDS ORDERED: CEFTRIAXONE 1 GM in DEXTROSE 5%-WATER - 50 ML IVPB ONE (05:45)
[2018-09-01] MEDS ORDERED: CEFTRIAXONE 1 GM/50 ML BAG ONE ×2 (06:49→08:35)
--- NOTE | 2018-09-01 06:59 | PN ---
Teaching Attending Note Name of Resident: Zulma Boyd ATTENDING PHYSICIAN STATEMENT I saw and evaluated the patient. I reviewed the resident's note and discussed the case with the resident. I agree with the resident's findings and plan as documented. SUBJECTIVE: Seen and examined; please refer to the resident note for further historical information. In summation she found her BP to be in the 190s and had somewhat atypical (epigastric, reproducile); persisted after taking an additional 5mg Amlodipine so she came to the ER. She is chest pain free at this juncture. She does follow with cardiology as an outpatient but unfortunately doesn't remember who she sees though it does sound like it may be Dr. Dodd. She tells us she had a stress test last year. The pain, as mentioned, is actually epigastric and is also elicited with palpation of the RUQ. She did take all her home meds today. She will be admitted to the medicine service. Her BP did fall to the 130s SBP in the ER after 1x SL NTG. Incidentally she did have some dysuria and has a UA that suggests infection. She is doing well. 10 sys ROS done and negative aside from HPI PMH and PSH reviewed FH asked and noncontributory Medication list reviewed; reconciliation pending OBJECTIVE: VS, labs, imaging reviewed NAD, AAO, resting comfortably in bed RRR s1/2 no mgr NT ND +BS CN2-12 wnl, no fnd Normal mood, appropriate affect EKG reviewed; labs reviewed and initial troponin negative, CXR reviewed with final report pending ASSESSMENT AND PLAN: Patient presents with hypertensive emergency and atypical CP; she recently saw CV and it is not clear what workup was done in the past as an outpatient/when she syncopized in the past but it appears that she does see Dr. Dodd. Will place on telemetry. 1) Hypertensive Emergency -Resolved in ER; continue home meds but will increase Amlodipine to 10mg (was 5 ) and add 2.5mg lisinopril PO QD. -Consider checking echo; review OP records to ensure not recently done. -Likely the cause of CP but must of course consider alt. explanation 2) Atypical CP/RUQ pain -Seen on exam; actually did localize to RUQ to me. -ASA 81mg PO QD. Cardiology to see. Holding off on ordering stress/echo/etc. due to the fact that she recently saw them and tells me that she had a recent negative nuclear stress last year. She does have multiple risk factors; consumer credit counselor to reduce -Check A1c, lipids, TSH. -Monitor on telemetry, trend troponin. 3) Acute Cystitis -Continue Ceftriaxong 1g QD and FU cultures 4) HLD -Continue home meds; check lipid pannel 5) Overweight -BMI 26; consumer credit counselor FENA -PO fluids -PRN replete -Cardiac -As tolerated Full Code
[2018-09-01 08:46] LABS: BASO % 0.8 % (0-2.0); HEMATOCRIT 40.8 % (32.4-45.2); HEMOGLOBIN 13.9 GM/dL (10.7-15.3); LYMPH % 32.1 % (8-40); MCH 30.2 pg (25.7-33.7); MEAN CELL VOLUME 88.9 fl (80-96); MEAN PLT VOLUME 8.6 fl (7.5-11.1); MONO % 9.2 % (3.8-10.2); NEUT % 55.9 % (42.8-82.8); PLATELET COUNT 288 K/MM3 (134-434); RBC 4.59 M/mm3 (3.60-5.2); RDW 13.5 % (11.6-15.6); WHITE BLOOD COUNT 5.4 K/mm3 (4.0-10.0)
[2018-09-01 09:19] LABS: ALBUMIN 3.8 g/dl (3.4-5.0); ALK PHOS 146 U/L (45-117); ANION GAP 7 MMOL/L (8-16); BILIRUBIN,TOTAL 0.3 mg/dL (0.2-1); BLOOD UREA NITROGEN 9 mg/dL (7-18); CALCIUM 8.8 mg/dL (8.5-10.1); CHLORIDE 104 mmol/L (98-107); CHOLESTEROL 269 mg/dL (50-200); CO2 31 mmol/L (21-32); CREATININE 0.6 mg/dL (0.55-1.3); GLUCOSE,RANDOM 97 mg/dL (74-106); HDL CHOLESTEROL 47 mg/dL (40-60); MAGNESIUM 2.2 mg/dL (1.8-2.4); PHOSPHOROUS 3.5 mg/dL (2.5-4.9); POTASSIUM 3.6 mmol/L (3.5-5.1); SGOT/AST 18 U/L (15-37); SGPT/ALT 35 U/L (13-61); SODIUM 141 mmol/L (136-145); TOT PROT 7.4 g/dl (6.4-8.2); TRIGLYCERIDES 247 mg/dL (0-150)
[2018-09-01] MEDS ORDERED: ASPIRIN 81 MG CHEWABLE TABLETS PO SCH (10:00)
[2018-09-01] MEDS ORDERED: LISINOPRIL 5 MG TABLET (FP) PO SCH (10:00)
[2018-09-01] MEDS ORDERED: EZETIMIBE 10 MG TABLET (FP) PO SCH (10:00)
[2018-09-01] MEDS ORDERED: ENOXAPARIN NA (PORCINE) 40 MG/0.4 ML DISP.SYRIN SQ SCH (10:00)
[2018-09-01] MEDS ORDERED: amLODIPine BESYLATE 10 MG TABLET (FP) PO SCH (10:00)
[2018-09-01] MEDS ORDERED: CARVEDILOL 25 MG TABLET (FP) PO SCH (10:00)
--- NOTE | 2018-09-01 11:19 | PN ---
Teaching Attending Note Name of Resident: Jerry Stanley ATTENDING PHYSICIAN STATEMENT I saw and evaluated the patient. I reviewed the resident's note and discussed the case with the resident. I agree with the resident's findings and plan as documented. SUBJECTIVE: OBJECTIVE: Vital Signs Period Temp Pulse Resp BP Sys/Hodgson Pulse Ox Last 24 Hr 98.1 F-98.5 F 61-71 17-19 124-191/78-92 97-99 Laboratory Results - last 24 hr 09/01/18 09/01/18 09/01/18 01:27 01:27 01:27 WBC 4.8 RBC 4.59 Hgb 13.9 Hct 40.6 MCV 88.5 MCH 30.4 MCHC 34.3 RDW 13.7 Plt Count 280 MPV 8.5 Absolute Neuts (auto) 2.6 Neutrophils % 54.4 Lymphocytes % 35.6 Monocytes % 7.0 Eosinophils % 2.3 Basophils % 0.7 Nucleated RBC % 0 PT with INR 11.90 INR 1.01 Sodium 142 Potassium 3.8 Chloride 106 Carbon Dioxide 29 Anion Gap 8 BUN 10 Creatinine 0.5 L Creat Clearance w eGFR > 60 Random Glucose 112 H Calcium 8.9 Phosphorus Magnesium Total Bilirubin 0.2 AST 22 ALT 39 Alkaline Phosphatase 152 H Creatine Kinase 118 Troponin I < 0.02 B-Natriuretic Peptide 41.8 Total Protein 7.5 Albumin 4.0 Triglycerides Cholesterol Total LDL Cholesterol HDL Cholesterol Lipase 218 TSH Free T4 Urine Color Urine Appearance Urine pH Ur Specific [place] Urine Protein Urine Glucose (UA) Urine Ketones Urine Blood Urine Nitrite Urine Bilirubin Urine Urobilinogen Ur Leukocyte Esterase Urine WBC (Auto) Urine RBC (Auto) Ur Epithelial Cells 09/01/18 09/01/18 09/01/18 01:32 04:30 08:25 WBC 5.4 RBC 4.59 Hgb 13.9 Hct 40.8 MCV 88.9 MCH 30.2 MCHC 34.0 RDW 13.5 Plt Count 288 MPV 8.6 Absolute Neuts (auto) 3.0 Neutrophils % 55.9 Lymphocytes % 32.1 Monocytes % 9.2 Eosinophils % 2.0 Basophils % 0.8 Nucleated RBC % 0 PT with INR INR Sodium Potassium Chloride Carbon Dioxide Anion Gap BUN Creatinine Creat Clearance w eGFR Random Glucose Calcium Phosphorus Magnesium Total Bilirubin AST ALT Alkaline Phosphatase Creatine Kinase Troponin I < 0.02 B-Natriuretic Peptide Total Protein Albumin Triglycerides Cholesterol Total LDL Cholesterol HDL Cholesterol Lipase TSH Free T4 Urine Color Straw Urine Appearance Clear Urine pH 7.0 Ur Specific [place] 1.011 Urine Protein Negative Urine Glucose (UA) Negative Urine Ketones Negative Urine Blood Negative Urine Nitrite Negative Urine Bilirubin Negative Urine Urobilinogen Negative Ur Leukocyte Esterase 1+ H Urine WBC (Auto) 14 Urine RBC (Auto) 1 Ur Epithelial Cells Rare 09/01/18 08:25 WBC RBC Hgb Hct MCV MCH MCHC RDW Plt Count MPV Absolute Neuts (auto) Neutrophils % Lymphocytes % Monocytes % Eosinophils % Basophils % Nucleated RBC % PT with INR INR Sodium 141 Potassium 3.6 Chloride 104 Carbon Dioxide 31 Anion Gap 7 L BUN 9 Creatinine 0.6 Creat Clearance w eGFR > 60 Random Glucose 97 Calcium 8.8 Phosphorus 3.5 Magnesium 2.2 Total Bilirubin 0.3 AST 18 ALT 35 Alkaline Phosphatase 146 H Creatine Kinase Troponin I B-Natriuretic Peptide Total Protein 7.4 Albumin 3.8 Triglycerides 247 H Cholesterol 269 H Total LDL Cholesterol 173 H HDL Cholesterol 47 Lipase TSH 0.86 Free T4 0.96 Urine Color Urine Appearance Urine pH Ur Specific [place] Urine Protein Urine Glucose (UA) Urine Ketones Urine Blood Urine Nitrite Urine Bilirubin Urine Urobilinogen Ur Leukocyte Esterase Urine WBC (Auto) Urine RBC (Auto) Ur Epithelial Cells Current Medications Generic Name Dose Route Start Last Admin Trade Name Freq PRN Reason Stop Dose Admin Amlodipine Besylate 10 mg 09/01/18 10:00 09/01/18 09:00 Norvasc - PO 10 mg DAILY CARRI Administration Aspirin 81 mg 09/01/18 10:00 09/01/18 09:00 Asa - PO 81 mg DAILY CARRI Administration Carvedilol 25 mg 09/01/18 10:00 Coreg - PO DAILY CARRI Ezetimibe 10 mg 09/01/18 10:00 09/01/18 08:59 Zetia - PO 10 mg DAILY CARRI Administration Enoxaparin Sodium 40 mg 09/01/18 10:00 09/01/18 09:00 Lovenox - SQ 40 mg DAILY CARRI Administration Ceftriaxone Sodium 1 gm/ 50 mls @ 100 mls/hr 09/02/18 10:00 Dextrose IVPB DAILY CARRI Lisinopril 2.5 mg 09/01/18 10:00 09/01/18 08:59 Prinivil PO 2.5 mg DAILY CARRI Administration ASSESSMENT AND PLAN: This is a 63 year old woman with a history of HTN, hyperlipidemia who presented to the ED with chest pain. 1. Hypertensive emergency - Resolved with SL NTG in ED - Continue Norvasc, Lisinopril, Coreg 2. Chest pain - Resolved - Troponin negative x 2 - RUQ normal 3. HTN, uncontrolled - Continue Norvasc, Lisinopril, Coreg 4. Hyperlipidemia - Continue Zetia 5. UTI - Continue ceftriaxone - Follow up urine culture 6. Disposition - Ok for discharge home on Ceftin once cleared by cardiology
--- NOTE | 2018-09-01 11:59 | CON.CARD ---
Consult Consult Specialty:: Cardiology Referred by:: Hospitalist Reason for Consultation:: Cardiac evaluation - History of Present Illness Chief Complaint: Chest pain History of Present Illness: Patient is a 63 year old female of descent with underlying history of HTN, hypercholesterolemia and hypothyroidism who presents with elevated BP (190- 200 systolic), headache and lepigastric discomfort and bilateral shoulder discomfort. She was watching TV when this occurred and prompted her to come into ER. Currently, she is asymptomatic. She denies chest pain, SOB or palpitations. She denies paroxysmal nocturnal dyspnea or orthopnea. She denies fever or chills. She denies nausea, vomiting, diarrhea or abdominal pain. She denies headache this am and denies lightheadedness. She had seen a Rent And Housing Investigator previously and also recently (but does not know his name). She states that she has had cardiac work up in the past. - History Source History Provided By: Patient, Family Member, Medical Record Limitations to Obtaining History: No Limitations - Past Medical History Cardio/Vascular: Yes: HTN, Hyperlipdemia Endocrine: Yes: Hypothyroidism - Past Surgical History Past Surgical History: Yes: - Alcohol/Substance Use Hx Alcohol Use: No - Smoking History Smoking history: Never smoked Have you smoked in the past 12 months: No Home Medications - Allergies Allergies/Adverse Reactions: Allergies Allergy/AdvReac Type Severity Reaction Status Date / Time No Known Allergies Allergy Verified 09/01/18 00:35 - Home Medications Home Medications: Ambulatory Orders Amlodipine Besylate 5 mg PO DAILY 04/13/17 Carvedilol [Coreg] 25 mg PO DAILY 04/13/17 Rosuvastatin Calcium 40 mg PO HS 07/19/17 Meclizine HCl [Antivert -] 25 mg PO TID PRN #21 tablet 01/04/18 Aspirin 81 mg PO DAILY 09/01/18 Ezetimibe 10 mg PO DAILY 09/01/18 Review of Systems - Review of Systems Constitutional: denies: Chills, Fever Cardiovascular: reports: Chest Pain. denies: Palpitations, Shortness of Breath Respiratory: denies: Cough, PND, SOB, SOB on Exertion Genitourinary: denies: Dysuria, Hematuria Musculoskeletal: denies: Back Pain, Joint Pain Neurological: reports: Headache. denies: Dizziness, Seizure, Syncope Vital Signs: Vital Signs Temperature 98.1 F 09/01/18 07:05 Pulse Rate 71 09/01/18 07:05 Respiratory Rate 17 09/01/18 07:05 Blood Pressure 124/78 09/01/18 07:05 O2 Sat by Pulse Oximetry (%) 97 09/01/18 07:05 Eyes: Yes: PERRL HENT: Yes: Atraumatic Neck: Yes: Supple Respiratory: Yes: CTA Bilaterally Gastrointestinal: Yes: Normal Bowel Sounds, Soft. No: Tenderness Cardiovascular: Yes: Regular Rate and Rhythm JVD: No PMI: Non-Displaced Heart Sounds: Yes: S1, S2 Edema: No - Other Data Labs, Other Data: CBC, BMP 09/01/18 08:25 09/01/18 08:25 INR, PTT INR 1.01 (0.83-1.09) 09/01/18 01:27 Troponin, BNP 09/01/18 09/01/18 01:27 04:30 Troponin I < 0.02 < 0.02 B-Natriuretic Peptide 41.8 NSR with T abnormality in anterior lead Imaging - Results Chest X-ray: Report Reviewed (Unremarkable) Cat Scan: Report Reviewed (Head CT unremarkable) Ultrasound: Report Reviewed (Abdominal US unremarkable) EKG: Report Reviewed Problem List - Problems (1) Hypercholesterolemia Code(s): E78.00 - PURE HYPERCHOLESTEROLEMIA, UNSPECIFIED (2) Chest pain Code(s): R07.9 - CHEST PAIN, UNSPECIFIED (3) Hypothyroidism Code(s): E03.9 - HYPOTHYROIDISM, UNSPECIFIED (4) Hypertension Code(s): I10 - ESSENTIAL (PRIMARY) HYPERTENSION (5) UTI (urinary tract infection) Code(s): N39.0 - URINARY TRACT INFECTION, SITE NOT SPECIFIED Qualifiers: Urinary tract infection type: site unspecified Hematuria presence: without hematuria Qualified Code(s): N39.0 - Urinary tract infection, site not specified Assessment/Plan 1. Chest pain syndrome with abnormal ECG 2. HTN 3. Hypercholesterolemia 4. Hypothyroidism 5. UTI PLAN: 1. Continue Lisinopril, Carvedilol and Amlodipine 2. Continue Zetia. Restart Rosuvastatin 3. ASA 4. Empiric antibiotic 5. Patient has 2 sets of negative troponin. She can be discharged home cardiac standpoint and is to follow up with the commercial artist she had seen in the clinic for further work up and follow up Thank you for the consult Carroll Scott MD
--- NOTE | 2018-09-01 14:06 | DS ---
Physical Exam: SUBJECTIVE: Patient seen and examined at bedside this morning. She endorses spontaneous resolution of chest pain, and denies palpitations, shortness of breath, abdominal pain, nausea, vomiting. OBJECTIVE: Vital Signs Period Temp Pulse Resp BP Sys/Hodgson Pulse Ox Last 24 Hr 98.1 F-98.5 F 61-71 17-19 124-191/78-92 97-99 PHYSICAL EXAM GENERAL: The patient is awake, alert, and fully oriented, in no acute distress. HEAD: Normal with no signs of trauma. EYES: PERRL, extraocular movements intact, sclera anicteric. ENT: Oropharynx clear without exudates, moist mucous membranes. NECK: Supple without lymphadenopathy LUNGS: Breath sounds equal, clear to auscultation bilaterally, no wheezes, no crackles. HEART: Regular rate and rhythm, S1, S2 without murmur, rub or gallop. ABDOMEN: Soft, nontender, nondistended. Normoactive bowel sounds, no guarding, no rebound tenderness. EXTREMITIES: 2+ radial and dorsalis pedis pulses B/L, warm, well-perfused, no lower extremity edema B/L. NEUROLOGICAL: Cranial nerves II through XII grossly intact. Normal speech. PSYCH: Normal mood, normal affect upon my encounter today. SKIN: Warm, dry. LABS Laboratory Results - last 24 hr 09/01/18 09/01/18 09/01/18 01:27 01:27 01:27 WBC 4.8 RBC 4.59 Hgb 13.9 Hct 40.6 MCV 88.5 MCH 30.4 MCHC 34.3 RDW 13.7 Plt Count 280 MPV 8.5 Absolute Neuts (auto) 2.6 Neutrophils % 54.4 Lymphocytes % 35.6 Monocytes % 7.0 Eosinophils % 2.3 Basophils % 0.7 Nucleated RBC % 0 PT with INR 11.90 INR 1.01 Sodium 142 Potassium 3.8 Chloride 106 Carbon Dioxide 29 Anion Gap 8 BUN 10 Creatinine 0.5 L Creat Clearance w eGFR > 60 Random Glucose 112 H Calcium 8.9 Phosphorus Magnesium Total Bilirubin 0.2 AST 22 ALT 39 Alkaline Phosphatase 152 H Creatine Kinase 118 Troponin I < 0.02 B-Natriuretic Peptide 41.8 Total Protein 7.5 Albumin 4.0 Triglycerides Cholesterol Total LDL Cholesterol HDL Cholesterol Lipase 218 TSH Free T4 Urine Color Urine Appearance Urine pH Ur Specific Pride Urine Protein Urine Glucose (UA) Urine Ketones Urine Blood Urine Nitrite Urine Bilirubin Urine Urobilinogen Ur Leukocyte Esterase Urine WBC (Auto) Urine RBC (Auto) Ur Epithelial Cells 09/01/18 09/01/18 09/01/18 01:32 04:30 08:25 WBC 5.4 RBC 4.59 Hgb 13.9 Hct 40.8 MCV 88.9 MCH 30.2 MCHC 34.0 RDW 13.5 Plt Count 288 MPV 8.6 Absolute Neuts (auto) 3.0 Neutrophils % 55.9 Lymphocytes % 32.1 Monocytes % 9.2 Eosinophils % 2.0 Basophils % 0.8 Nucleated RBC % 0 PT with INR INR Sodium Potassium Chloride Carbon Dioxide Anion Gap BUN Creatinine Creat Clearance w eGFR Random Glucose Calcium Phosphorus Magnesium Total Bilirubin AST ALT Alkaline Phosphatase Creatine Kinase Troponin I < 0.02 B-Natriuretic Peptide Total Protein Albumin Triglycerides Cholesterol Total LDL Cholesterol HDL Cholesterol Lipase TSH Free T4 Urine Color Straw Urine Appearance Clear Urine pH 7.0 Ur Specific Pride 1.011 Urine Protein Negative Urine Glucose (UA) Negative Urine Ketones Negative Urine Blood Negative Urine Nitrite Negative Urine Bilirubin Negative Urine Urobilinogen Negative Ur Leukocyte Esterase 1+ H Urine WBC (Auto) 14 Urine RBC (Auto) 1 Ur Epithelial Cells Rare 09/01/18 09/01/18 08:25 11:45 WBC RBC Hgb Hct MCV MCH MCHC RDW Plt Count MPV Absolute Neuts (auto) Neutrophils % Lymphocytes % Monocytes % Eosinophils % Basophils % Nucleated RBC % PT with INR INR Sodium 141 Potassium 3.6 Chloride 104 Carbon Dioxide 31 Anion Gap 7 L BUN 9 Creatinine 0.6 Creat Clearance w eGFR > 60 Random Glucose 97 Calcium 8.8 Phosphorus 3.5 Magnesium 2.2 Total Bilirubin 0.3 AST 18 ALT 35 Alkaline Phosphatase 146 H Creatine Kinase Troponin I < 0.02 B-Natriuretic Peptide Total Protein 7.4 Albumin 3.8 Triglycerides 247 H Cholesterol 269 H Total LDL Cholesterol 173 H HDL Cholesterol 47 Lipase TSH 0.86 Free T4 0.96 Urine Color Urine Appearance Urine pH Ur Specific Pride Urine Protein Urine Glucose (UA) Urine Ketones Urine Blood Urine Nitrite Urine Bilirubin Urine Urobilinogen Ur Leukocyte Esterase Urine WBC (Auto) Urine RBC (Auto) Ur Epithelial Cells HOSPITAL COURSE: Date of Admission:09/01/18 Date of Discharge: 09/01/18 Patient is a 63 year old female with history of hypertension, hyperlipidemia prior syncopal episode, presents with complain of chest pain with associated hypertension. BP upon arrival was 191/92. She was given sublingual nitroglycerin and her BP went down to 133/94. Troponins 0.02 X3. EKG showed normal sinus rhythm without ischemic changes. She was started on Lisinopril. Amlodipine home dose increased. UA was significant for leukocyte esterase 1+ and patient was started on Rocephin. Patient endorses abdominal tenderness upon deep palpation, and right upper quadrant ultrasound showed no acute pathology. Patient was evaluated by cardiology and discharged home with Amlodipine, Lisinopril, Carvedilol, Aspirin. Ceftin for one week for her UTI. Discharged to follow up with primary care physician, and hospital internship. Minutes to complete discharge: 35 Discharge Summary Reason For Visit: HYPERTENSIVE EMERGENCY,CHEST PAIN Current Active Problems Chest pain (Acute) Hypercholesterolemia (Acute) Hypertension (Acute) Hypothyroidism (Acute) Condition: Stable - Instructions Diet, Activity, Other Instructions: You were admitted to the hospital with complaint of chest pain, and elevated blood pressure. You were evaluated by the hospital internship and have been cleared for discharge home. We have changed some of your medications: You will begin taking Lisinopril 2.5mg daily Your Amlodipine has been increased to 10mg daily Continue taking Aspirin 81mg daily Continue taking Carvedilol 25mg daily Continue taking Zetia 10mg daily You will take antibiotic Ceftin 250mg every 12 hours for one week. Follow up with your primary care physician within one week of discharge. Discuss beginning a Statin medication with your physician at your appointment. Further, you will require blood work (lipid panel, cbc, bmp, hepatic panel) at your appointment. Follow up with hospital internship within one week after discharge. Return to the nearest emergency department if you experience any worsening symptoms, fevers, chills, shortness of breath, chest pain, palpitations, abdominal pain, nausea, vomiting. Referrals: Carroll Scott MD [Staff Physician] - Angelita Bhagat MD [Primary Care Provider] - Disposition: HOME - Home Medications Comprehensive Discharge Medication List: Ambulatory Orders Carvedilol [Coreg] 25 mg PO DAILY 04/13/17 Amlodipine Besylate [Norvasc -] 10 mg PO DAILY 28 Days #28 tablet 09/01/18 Aspirin 81 mg PO DAILY 09/01/18 Cefuroxime Axetil [Ceftin -] 250 mg PO Q12H 7 Days #14 tablet 09/01/18 Ezetimibe 10 mg PO DAILY 09/01/18 Lisinopril [Zestril] 2.5 mg PO DAILY 28 Days #28 tablet 09/01/18 This patient is new to me today: Yes Date on this admission: 09/01/18 Emergency Visit: Yes ED Registration Date: 09/01/18 Care time: The patient presented to the Emergency Department on the above date and was hospitalized for further evaluation of their emergent condition. Critical Care patient: No - Discharge Referral Referred to [facility] Med [facility].: No
--- NOTE | 2018-09-01 16:29 | EKG ---
Test Reason : Blood Pressure : / mmHG Vent. Rate : 066 BPM Atrial Rate : 066 BPM P-R Int : 186 ms QRS Dur : 084 ms QT Int : 412 ms P-R-T Axes : 050 036 047 degrees QTc Int : 431 ms NORMAL SINUS RHYTHM T WAVE ABNORMALITY, CONSIDER ANTERIOR ISCHEMIA ABNORMAL ECG WHEN COMPARED WITH ECG OF 04-JAN-2018 09:46, NO SIGNIFICANT CHANGE WAS FOUND Confirmed by MD FAISAL, ROCAEL ([id number]) on 09/01/2018 4:29:13 PM Referred By: Confirmed By:ROCAEL MALONE MD
[2018-09-02 07:45] VITALS: BP 124/88; PULSE 73; TEMP 98.2
[2018-09-02] MEDS ORDERED: CEFTRIAXONE 1 GM in DEXTROSE 5%-WATER - 50 ML IVPB SCH (10:00)
== END 2018-09-02 07:41 | disposition home or self-care (01) ==
LOC: JER 23:45 → JERBED 09-01 03:56
PROVIDERS: ADMIT Internal Medicine; ATTEND Internal Medicine
PROC: 3E03329 Introduction of Other Anti-infective into Peripheral Vein, Percutaneous Approach (ICD-10-PCS; principal; 2018-09-01)
PROC: 3E013GC Introduction of Other Therapeutic Substance into Subcutaneous Tissue, Percutaneous Approach (ICD-10-PCS; 2018-09-01)
DX: I16.1 Hypertensive emergency (principal); N30.00 Acute cystitis without hematuria; R07.89 Other chest pain; R10.11 Right upper quadrant pain; I10 Essential (primary) hypertension; E78.5 Hyperlipidemia, unspecified; E66.3 Overweight; Z68.26 Body mass index [BMI] 26.0-26.9, adult; E03.9 Hypothyroidism, unspecified
CPT/HCPCS: 36415; 70450-TC; 71046-TC-FY; 76705-TC; 80053; 80061; 81003; 81015; 82550; 83690; 83721; 83735; 83880; 84100; 84439; 84443; 84484; 85025; 85610; 87086; 93005; 93010; 96365; 96372; 99284-25; G0378

== ENCOUNTER 2019-01-15 05:41 | Emergency (ER) | payer OTHER ==
--- NOTE | 2019-01-15 05:52 | PDOC ---
History of Present Illness - General Stated Complaint: ABD PAIN Time Seen by Provider: 01/15/19 05:51 History Source: Patient Exam Limitations: No Limitations - History of Present Illness Initial Comments: 01/15/19 06:08 63 year old female with PMH HTN, HLD, hypothyroidism, UTI, GERD presented to ED for epigastric pain since 0100 today. Pt reported her pain is intermittent, radiating into her chest, no alleviating or aggravating factors, worsening. Pt reported nausea, denied vomiting. Pt denied fever, chills, diarrhea, shortness of breath, palpitations. Allergies: NKDA Past History - Past Medical History Allergies/Adverse Reactions: Allergies Allergy/AdvReac Type Severity Reaction Status Date / Time No Known Allergies Allergy Verified 01/15/19 06:09 Home Medications: Ambulatory Orders Amlodipine Besylate [Norvasc -] 10 mg PO DAILY 01/15/19 Aspirin [ASA -] 81 mg PO DAILY 01/15/19 Carvedilol [Coreg -] 25 mg PO ONCE 01/15/19 Ezetimibe [Zetia -] 10 mg PO DAILY 01/15/19 Meclizine HCl 25 mg PO BID PRN #20 tablet 01/15/19 Ondansetron HCl [Zofran] 4 mg PO BID PRN #10 tablet 01/15/19 COPD: No HTN: Yes Hypercholesterolemia: Yes - Suicide/Smoking/Psychosocial Hx Smoking History: Never smoked Have you smoked in the past 12 months: No Hx Alcohol Use: No Drug/Substance Use Hx: No Review of Systems - Review of Systems Able to Perform ROS?: Yes Comments:: 01/15/19 06:06 General: denied fever, chills, generalized weakness. HEENT: denied sore throat, rhinorrhea, ear pain. Heart: admitted to chest pain. denied palpitations, syncope, diaphoresis. Respiratory: denied shortness of breath, cough, sputum production, hemoptysis. Abdomen: admitted to abdominal pain, nausea, vomiting. denied diarrhea, constipation, blood in stool. : denied dysuria, increased urinary frequency, hematuria, urinary incontinence , flank pain. Back: denied back pain. Musculoskeletal: denied joint pain, muscle pain, joint swelling. Neurological: denied headache, dizziness, numbness, tingling, weakness. Skin: denied rash, laceration, abrasion. *Physical Exam - Physical Exam Comments: 01/15/19 06:07 Constitutional: Well-nourished, Well-developed, appearing stated age. HEENT: head is normocephalic, atraumatic. EOMI. PERRLA. Neck: supple. Full ROM. Heart: regular rhythm. no murmurs, rubs or gallops. Lungs: clear to auscultation bilaterally. no crackles, rhonchi or wheezing. no stridor. Abdomen: soft, nontender, flat. normal bowel sounds. no rebound, guarding, masses. currie negative. mcburney nontender. Extremities: peripheral pulses intact. no lower extremity edema. Neurological: CN 2-12 grossly intact. moves all four extremities. Psych: awake, alert, oriented x3. follows commands. answers questions appropriately. ED Treatment Course - LABORATORY CBC & Chemistry Diagram: 01/15/19 05:56 01/15/19 05:56 Medical Decision Making - Medical Decision Making 01/15/19 06:07 63 year old female with above PMH presented to ED for epigastric pain since 0100 today, associated with nausea, and chest pain. Initial Vital Signs Temp Pulse Resp BP Pulse Ox 97.9 F 82 18 147/87 97 01/15/19 06:04 01/15/19 06:04 01/15/19 06:04 01/15/19 06:04 01/15/19 06:04 Afebrile. No tachycardia. No tachypnea. Mild hypertension. No hypoxia on room air. Labs ordered: CBC, CMP, troponin, UA/UC Imaging ordered: CXR Medications ordered: ASA 162 mg PO chew, Tylenol IV, zofran 4 mg IV once, pepcid IV once, maalox EKG performed at 0608: rate 74, regular rhythm, normal axis, normal intervals, flipped T V1-V3, flat T in aVL otherwise no acute ST changes. Similar to EKG performed 09/01/18. 01/15/19 06:16 CBC WBC 4.3 K/mm3 (4.0-10.0) 01/15/19 05:56 RBC 4.89 M/mm3 (3.60-5.2) 01/15/19 05:56 Hgb 14.9 GM/dL (10.7-15.3) 01/15/19 05:56 Hct 43.8 % (32.4-45.2) 01/15/19 05:56 MCV 89.5 fl (80-96) 01/15/19 05:56 MCH 30.4 pg (25.7-33.7) 01/15/19 05:56 MCHC 33.9 g/dl (32.0-36.0) 01/15/19 05:56 RDW 13.4 % (11.6-15.6) 01/15/19 05:56 Plt Count 296 K/MM3 (134-434) 01/15/19 05:56 MPV 8.8 fl (7.5-11.1) 01/15/19 05:56 Absolute Neuts (auto) 2.7 K/mm3 (1.5-8.0) 01/15/19 05:56 Neutrophils % 62.1 % (42.8-82.8) 01/15/19 05:56 Lymphocytes % 29.1 % (8-40) 01/15/19 05:56 Monocytes % 5.9 % (3.8-10.2) 01/15/19 05:56 Eosinophils % 1.8 % (0-4.5) 01/15/19 05:56 Basophils % 1.1 % (0-2.0) 01/15/19 05:56 Nucleated RBC % 0 % (0-0) 01/15/19 05:56 No leukocytosis. No anemia. 01/15/19 06:55 CMP Sodium 142 mmol/L (136-145) 01/15/19 05:56 Potassium 4.0 mmol/L (3.5-5.1) 01/15/19 05:56 Chloride 107 mmol/L (98-107) 01/15/19 05:56 Carbon Dioxide 26 mmol/L (21-32) 01/15/19 05:56 Anion Gap 9 MMOL/L (8-16) 01/15/19 05:56 BUN 12 mg/dL (7-18) 01/15/19 05:56 Creatinine 0.6 mg/dL (0.55-1.3) 01/15/19 05:56 Est GFR (CKD-EPI)AfAm 113.22 01/15/19 05:56 Est GFR (CKD-EPI)NonAf 97.69 01/15/19 05:56 Random Glucose 106 mg/dL (74-106) 01/15/19 05:56 Calcium 9.3 mg/dL (8.5-10.1) 01/15/19 05:56 Total Bilirubin 0.3 mg/dL (0.2-1) 01/15/19 05:56 AST 20 U/L (15-37) 01/15/19 05:56 ALT 34 U/L (13-61) 01/15/19 05:56 Alkaline Phosphatase 142 U/L (45-117) H 01/15/19 05:56 Troponin I < 0.02 ng/ml (0.00-0.05) 01/15/19 05:56 Total Protein 8.0 g/dl (6.4-8.2) 01/15/19 05:56 Albumin 4.3 g/dl (3.4-5.0) 01/15/19 05:56 Lipase 193 U/L (73-393) 01/15/19 05:56 No electrolyte abnormalities. No SRIKANTH. No transaminitis, ALP at baseline. Normal lipase. Troponin undetectable. 01/15/19 06:56 Pt signed out to Dr. Navas -Pending CXR -Pending symptom relief -Pending dispo 01/15/19 18:46 Follow up: Official CXR report: A single AP view of the chest reveals a weak inspiration with large heart, unfolded aorta and congestive changes. There is sharp. The soft tissues are intact correlation recommended. Reported By: Alen Garcia MD 01/15/19 0656 *DC/Admit/Observation/Transfer Diagnosis at time of Disposition: Epigastric pain - Discharge Dispostion Condition at time of disposition: Stable Decision to Admit order: No - Prescriptions Prescriptions: Meclizine HCl 25 mg PO BID PRN #20 tablet PRN Reason: Vertigo Ondansetron HCl [Zofran] 4 mg PO BID PRN #10 tablet PRN Reason: Nausea - Referrals Referrals: Angelita Bhagat MD [Primary Care Provider] - - Patient Instructions Printed Discharge Instructions: DI for Gastroesophageal Reflux Disease (GERD), DI for Epigastric Pain, GERD Diet Additional Instructions: You were seen in the ER for abdominal pain and nausea We did lab work on your blood, an electrogardiogram, and a chest x-ray, and found no abnormalities. After our assessment, we do not believe you are having a medical emergency at this time, and we believe you are safe to go home. Continue taking the three medications you have at home for your gastritis. Please take Zofran if you need it for pain, and take meclizine if you need it for vertigo. Call your regular doctor's clinic, tell them you were seen in the ER, and tell them you need an appointment. Please come back to the ER at any time, 24 hours a day, for any new or worsening symptoms, like worsened abdominal pain, fever, inability to have a bowel movement or pass gas, chest pain, palpitations, or other symptoms. If you are having severe or life threatening symptoms, or symptoms that make it unsafe to drive or have someone drive you, please call 911. Usted fue atendido en la angel de emergencias por dolor abdominal y nuseas. Hicimos unos laboratorios de sully, un electrogardiograma, y shawn radiografa del pecho, y no encontramos anomalas. Despus de nuestra evaluacin, no creemos que tenga shawn emergencia mdica en torrie momento, y creemos que puede irse a casa sin peligro. Contina tomando los zain medicamentos que tienes en casa para la gastritis. [place] Zofran si lo necesita para el dolor, y tome meclizine si lo necesita para el vrtigo. Llame a la clnica de stephens mdico habitual, dgales que lo atendieron en la angel de emergencias y que necesita shawn rox. Regrese a la angel de emergencias en cualquier momento, las 24 horas del da, para cualquier sntoma nuevo o que empeore, oliver dolor abdominal agravado, fiebre, incapacidad para evacuar o expulsar gases, dolor en el pecho, palpitaciones u otros sntomas. Si tiene sntomas graves o potencialmente mortales, o sntomas que hacen que no sea seguro conducir o que alguien lo lleve , llame al 911. - Post Discharge Activity Forms/Work/School Notes: Back to Work
[2019-01-15] MEDS ORDERED: ONDANSETRON 4 MG/2 ML VIAL IVPUSH ONE (06:05)
[2019-01-15] MEDS ORDERED: MAG HYDROX/AL HYDROX/SIMETH 30 ML UNIT-DOSE CUP PO ONE (06:05)
[2019-01-15] MEDS ORDERED: SODIUM CHLORIDE 1,000 ML IV STA (06:05)
[2019-01-15] MEDS ORDERED: FAMOTIDINE 20 MG/50 ML IVPB 20 MG/50 ML MG IVPB ONE ×2 (06:05→06:36)
[2019-01-15] MEDS ORDERED: ACETAMINOPHEN 1000 MG/100 ML VIAL (NON FORMULARY) IVPB ONE (06:05)
[2019-01-15 06:09] VITALS: TEMP 97.9; BMI 27.4
[2019-01-15] MEDS ORDERED: ASPIRIN 81 MG CHEWABLE TABLETS PO ONE (06:11)
[2019-01-15 06:12] LABS: BASO % 1.1 % (0-2.0); EOS % 1.8 % (0-4.5); HEMATOCRIT 43.8 % (32.4-45.2); HEMOGLOBIN 14.9 GM/dL (10.7-15.3); LYMPH % 29.1 % (8-40); MCH 30.4 pg (25.7-33.7); MCHC 33.9 g/dl (32.0-36.0); MEAN CELL VOLUME 89.5 fl (80-96); MEAN PLT VOLUME 8.8 fl (7.5-11.1); MONO % 5.9 % (3.8-10.2); NEUT % 62.1 % (42.8-82.8); PLATELET COUNT 296 K/MM3 (134-434); RBC 4.89 M/mm3 (3.60-5.2); RDW 13.4 % (11.6-15.6); WHITE BLOOD COUNT 4.3 K/mm3 (4.0-10.0)
--- NOTE | 2019-01-15 06:17 | PDOC ---
Attending Attestation - Resident Resident Name: Marcia Zavala - ED Attending Attestation I have performed the following: I have examined & evaluated the patient, The case was reviewed & discussed with the resident, I agree w/resident's findings & plan, Exceptions are as noted - HPI HPI: 01/15/19 06:18 63F pmh HTN, HLD, GERD, hypothyroid here with severe epigastric px, radiating upward since early this morning. A/w nausea, no vomiting. No other complaints. - Physicial Exam PE: 01/15/19 06:18 Agree with exam as documented by resident mild epigastric TTP, no guarding, no rebound - Medical Decision Making 01/15/19 06:19 Consider px 2/2 gastritis, gerd, less likely atypical chest pain Trial gi cocktail, f/u labs including tpn, ekg dispo per clinical course
[2019-01-15] MEDS ORDERED: MAG HYDROX/AL HYDROX/SIMETH 30 ML UNIT-DOSE CUP ONE (06:35)
[2019-01-15] MEDS ORDERED: ACETAMINOPHEN INJECTION 100 ML IVPB ONE (06:35)
[2019-01-15] MEDS ORDERED: ONDANSETRON 4 MG/2 ML VIAL ONE (06:35)
[2019-01-15] MEDS ORDERED: ASPIRIN 81 MG CHEWABLE TABLETS ONE (06:35)
[2019-01-15 06:39] LABS: INR 1.04 (0.83-1.09); PROTHROMBIN TIME (PATIENT) 12.3 SEC (9.7-13.0)
[2019-01-15 06:42] LABS: ACTIVATED PTT 36.9 SECONDS (25.2-36.5)
[2019-01-15 06:49] LABS: ALBUMIN 4.3 g/dl (3.4-5.0); ALK PHOS 142 U/L (45-117); ANION GAP 9 MMOL/L (8-16); BILIRUBIN,TOTAL 0.3 mg/dL (0.2-1); BLOOD UREA NITROGEN 12 mg/dL (7-18); CALCIUM 9.3 mg/dL (8.5-10.1); CHLORIDE 107 mmol/L (98-107); CO2 26 mmol/L (21-32); CREATININE 0.6 mg/dL (0.55-1.3); GLUCOSE,RANDOM 106 mg/dL (74-106); LIPASE 193 U/L (73-393); SGOT/AST 20 U/L (15-37); SGPT/ALT 34 U/L (13-61); SODIUM 142 mmol/L (136-145)
--- NOTE | 2019-01-15 08:04 | PDOC ---
*Physical Exam - Vital Signs Last Vital Signs Temp Pulse Resp BP Pulse Ox 97.9 F 82 18 147/87 97 01/15/19 06:24 01/15/19 06:24 01/15/19 06:24 01/15/19 06:24 01/15/19 06:24 - Physical Exam Comments: 01/15/19 07:55 Patient's care was endorsed to me by Dr. Zavala at the end of her shift. Patient is a 63 YOF with h/o H. pylori gastritis (currently being tx with triple therapy and adherent to this regimen) who p/w epigastric pain which has since resolved after ED GI cocktail. States she gets a bit nauseated with the three medications for the gastritis at home. States occasionally she gets lightheaded on standing more than normal. ED Treatment Course - LABORATORY CBC & Chemistry Diagram: 01/15/19 05:56 01/15/19 05:56 - ADDITIONAL ORDERS Additional order review: Laboratory Results 01/15/19 01/15/19 05:56 05:56 PT with INR 12.30 INR 1.04 PTT (Actin FS) 36.9 H Sodium 142 Potassium 4.0 Chloride 107 Carbon Dioxide 26 Anion Gap 9 BUN 12 Creatinine 0.6 Est GFR (CKD-EPI)AfAm 113.22 Est GFR (CKD-EPI)NonAf 97.69 Random Glucose 106 Calcium 9.3 Total Bilirubin 0.3 AST 20 ALT 34 Alkaline Phosphatase 142 H Troponin I < 0.02 Total Protein 8.0 Albumin 4.3 Lipase 193 01/15/19 05:56 RBC 4.89 MCV 89.5 MCHC 33.9 RDW 13.4 MPV 8.8 Neutrophils % 62.1 Lymphocytes % 29.1 Monocytes % 5.9 Eosinophils % 1.8 Basophils % 1.1 - Medications Given in the ED: ED Medications Discontinued Medications Generic Name Dose Route Start Last Admin Trade Name Freq PRN Reason Stop Dose Admin Acetaminophen 1,000 mg 01/15/19 06:05 01/15/19 06:47 Ofirmev Injection - IVPB 01/15/19 06:06 1,000 mg ONCE ONE Administration Al Hydroxide/Mg Hydroxide 30 ml 01/15/19 06:05 01/15/19 06:47 Mylanta Oral Suspension - PO 01/15/19 06:06 30 ml ONCE ONE Administration Aspirin 162 mg 01/15/19 06:11 01/15/19 06:48 Asa - PO 01/15/19 06:12 162 mg ONCE ONE Administration Famotidine/Sodium Chloride 20 mg in 50 mls @ 100 mls/hr 01/15/19 06:05 06:48 Pepcid 20 Mg Premixed Ivpb - IVPB 01/15/19 06:34 100 mls/hr ONCE ONE Administration Sodium Chloride 1,000 mls @ 1,000 mls/hr 01/15/19 06:05 01/15/19 06:47 Normal Saline - IV 01/15/19 07:04 1,000 mls/hr ASDIR STA Administration Ondansetron HCl 4 mg 01/15/19 06:05 01/15/19 06:48 Zofran Injection IVPUSH 01/15/19 06:06 4 mg ONCE ONE Administration Medical Decision Making - Medical Decision Making Initial Vital Signs Temp Pulse Resp BP Pulse Ox 97.9 F 82 18 147/87 97 01/15/19 06:04 01/15/19 06:04 01/15/19 06:04 01/15/19 06:04 01/15/19 06:04 Vital Signs Temperature 97.9 F 01/15/19 06:24 Pulse Rate 82 01/15/19 06:24 Respiratory Rate 18 01/15/19 06:24 Blood Pressure 147/87 01/15/19 06:24 O2 Sat by Pulse Oximetry (%) 97 01/15/19 06:24 Reassessment: patient states pain is much better, repeat abdominal exam nontender and benign. Denies nausea or lightheadedness/dizziness at this time. The Pt has gotten significant relief of symptoms while in the ED. Workup is not concerning for emergency-level pathology at this time. They are appropriate for discharge with close outpatient follow up. They are comfortable with this plan and will follow up with their primary care provider in 1-3 days. She is given E-Rx for meclizine and small Zofran Rx. (QTc was 430 on EKG today). Specific return precautions are discussed and they will come back to the ER if necessary. *DC/Admit/Observation/Transfer Diagnosis at time of Disposition: Epigastric pain - Discharge Dispostion Condition at time of disposition: Stable - Prescriptions Prescriptions: Meclizine HCl 25 mg PO BID PRN #20 tablet PRN Reason: Vertigo Ondansetron HCl [Zofran] 4 mg PO BID PRN #10 tablet PRN Reason: Nausea - Referrals Referrals: Angelita Bhagat MD [Primary Care Provider] - - Patient Instructions Printed Discharge Instructions: DI for Gastroesophageal Reflux Disease (GERD), DI for Epigastric Pain, GERD Diet Additional Instructions: You were seen in the ER for abdominal pain and nausea We did lab work on your blood, an electrogardiogram, and a chest x-ray, and found no abnormalities. After our assessment, we do not believe you are having a medical emergency at this time, and we believe you are safe to go home. Continue taking the three medications you have at home for your gastritis. Please take Zofran if you need it for pain, and take meclizine if you need it for vertigo. Call your regular doctor's clinic, tell them you were seen in the ER, and tell them you need an appointment. Please come back to the ER at any time, 24 hours a day, for any new or worsening symptoms, like worsened abdominal pain, fever, inability to have a bowel movement or pass gas, chest pain, palpitations, or other symptoms. If you are having severe or life threatening symptoms, or symptoms that make it unsafe to drive or have someone drive you, please call 911. Usted fue atendido en la angel de emergencias por dolor abdominal y nuseas. Hicimos unos laboratorios de sully, un electrogardiograma, y shawn radiografa del pecho, y no encontramos anomalas. Despus de nuestra evaluacin, no creemos que tenga shawn emergencia mdica en torrie momento, y creemos que puede irse a casa sin peligro. Contina tomando los zain medicamentos que tienes en casa para la gastritis. [place] Zofran si lo necesita para el dolor, y tome meclizine si lo necesita para el vrtigo. Llame a la clnica de stephens mdico habitual, dgales que lo atendieron en la angel de emergencias y que necesita shawn rox. Regrese a la angel de emergencias en cualquier momento, las 24 horas del da, para cualquier sntoma nuevo o que empeore, oliver dolor abdominal agravado, fiebre, incapacidad para evacuar o expulsar gases, dolor en el pecho, palpitaciones u otros sntomas. Si tiene sntomas graves o potencialmente mortales, o sntomas que hacen que no sea seguro conducir o que alguien lo lleve , llame al 911. - Post Discharge Activity Forms/Work/School Notes: Back to Work
[2019-01-15 08:28] VITALS: BP 142/78; PULSE 85
[2019-01-15 08:38] LABS: PH,URINE 7.5 (5.0-8.0); URINE APPEARANCE CLEAR; URINE BILIRUBIN NEGATIVE (NEGATIVE); URINE COLOR YELLOW; URINE GLUCOSE (UA) NEGATIVE (NEGATIVE); URINE KETONE NEGATIVE (NEGATIVE); URINE LEUK ESTERASE NEGATIVE (NEGATIVE); URINE NITRITE NEGATIVE (NEGATIVE); URINE PROTEIN NEGATIVE (NEGATIVE); URINE UROBILINOGEN 0.2 mg/dL (0.2-1.0)
--- NOTE | 2019-01-15 12:29 | EKG ---
Test Reason : Blood Pressure : / mmHG Vent. Rate : 074 BPM Atrial Rate : 074 BPM P-R Int : 176 ms QRS Dur : 078 ms QT Int : 388 ms P-R-T Axes : 039 034 038 degrees QTc Int : 430 ms POOR DATA QUALITY, INTERPRETATION MAY BE ADVERSELY AFFECTED NORMAL SINUS RHYTHM T WAVE ABNORMALITY, CONSIDER ANTERIOR ISCHEMIA ABNORMAL ECG WHEN COMPARED WITH ECG OF 01-SEP-2018 01:10, NO SIGNIFICANT CHANGE WAS FOUND Confirmed by VICKI ESPINOZA MD ([id number]) on 01/15/2019 12:28:36 PM Referred By: Confirmed By:VICKI ESPINOZA MD
== END 2019-01-15 08:28 | disposition home or self-care (01) ==
LOC: JER 05:41
PROC: 3E033GC Introduction of Other Therapeutic Substance into Peripheral Vein, Percutaneous Approach (ICD-10-PCS; principal; 2019-01-15)
PROC: 3E0337Z Introduction of Electrolytic and Water Balance Substance into Peripheral Vein, Percutaneous Approach (ICD-10-PCS; 2019-01-15)
PROC: 3E033NZ Introduction of Analgesics, Hypnotics, Sedatives into Peripheral Vein, Percutaneous Approach (ICD-10-PCS; 2019-01-15)
DX: R10.13 Epigastric pain (principal); I10 Essential (primary) hypertension; E78.00 Pure hypercholesterolemia, unspecified; E03.9 Hypothyroidism, unspecified; N39.0 Urinary tract infection, site not specified; K21.9 Gastro-esophageal reflux disease without esophagitis; E78.5 Hyperlipidemia, unspecified
CPT/HCPCS: 36415; 71045-TC-FY; 80053; 81003; 83690; 84484; 85025; 85610; 85730; 87086; 93005; 93010; 96361; 96365; 96375; 99284-25; J0131; J7030

== ENCOUNTER 2019-05-14 22:48 | Emergency (ER) | payer OTHER ==
--- NOTE | 2019-05-14 23:08 | PDOC ---
History of Present Illness - General Chief Complaint: Chest Pain Stated Complaint: CHEST PAIN Time Seen by Provider: 05/14/19 23:08 Past History - Past Medical History Allergies/Adverse Reactions: Allergies Allergy/AdvReac Type Severity Reaction Status Date / Time No Known Allergies Allergy Verified 05/14/19 22:55 Home Medications: Ambulatory Orders Amlodipine Besylate [Norvasc -] 10 mg PO DAILY 01/15/19 Aspirin [ASA -] 81 mg PO DAILY 01/15/19 Carvedilol [Coreg -] 25 mg PO ONCE 01/15/19 Ezetimibe [Zetia -] 10 mg PO DAILY 01/15/19 Meclizine HCl 25 mg PO BID PRN #20 tablet 01/15/19 Ondansetron HCl [Zofran] 4 mg PO BID PRN #10 tablet 01/15/19 COPD: No HTN: Yes Hypercholesterolemia: Yes - Psycho Social/Smoking Cessation Hx Smoking History: Never smoked Have you smoked in the past 12 months: No Hx Alcohol Use: No Drug/Substance Use Hx: No *Physical Exam - Vital Signs Last Vital Signs Temp Pulse Resp BP Pulse Ox 97.9 F 84 18 152/85 97 05/14/19 22:52 05/14/19 22:52 05/14/19 22:52 05/14/19 22:52 05/14/19 22:52 ED Treatment Course - LABORATORY CBC & Chemistry Diagram: 05/14/19 00:10 05/14/19 00:10 Medical Decision Making - Medical Decision Making HPI: 63yo F with PMH of HTN, HLD, hypothyroidism complaining of chest pain. Patient states she heard upsetting news while on the phone around 9:45pm today and started feeling chest "pressure" rated 8-9/10. She also felt lightheadedness, nausea, shortness of breath, and weakness. Patient was feeling so poorly that she checked her blood pressure twice, 198/97 and 177/87, and noted those levels to be high. She does not check her blood pressure regularly but believes her baseline is 135 systolic when she gets it checked at doctors' offices. Patient states her pain has improved and now just has some mild chest pain. No personal or family history of RI. Last felt pain like this about four months ago for which she was evaluated in this ED. 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 Denies fever, but endorses "feeling cold." PCP: Dr. Frances Cardio: Dr. Carola Meza ROS: Constitutional: no fever, no diaphoresis HEENT: no throat pain, no dysphagia Cardiovascular: +chest pain, no palpitations Respiratory: no cough, +shortness of breath Gastrointestinal: no abdominal pain, +nausea Genitourinary: no dysuria, no hematuria Musculoskeletal: no myalgia, no arthralgia Skin: no rash, no itching Neurologic: no headache, +weakness PE: General: Awake, alert, and fully oriented, in no acute distress Head: No signs of trauma Eyes: EOMI, sclera anicteric ENT: Moist mucus membranes Neck: Normal ROM, supple Lungs: Lungs clear, Normal breath sounds Cardio: Regular rhythm, S1 and S2 present Abdomen: Soft, nontender Extremities: Normal range of motion, Distal pulses present SKIN: Warm, Dry, normal turgor Neurologic: Cranial nerves II through XII grossly intact. Normal speech ED Course/MDM: DDX including but not limited to ACS, PE, PNA, anemia, metabolic derangement, psych Labs, EKG, CXR PERC=1 for age >50 I have low syspicion for PE as patient without tachycardia or hypoxia. EKG: rate 81, Qtc 443, NSR, twi in anterior distribution also present on previous EKG 01/15/19 05/14/19 23:08 CBC WBC 5.0 K/mm3 (4.0-10.0) 05/14/19 00:10 RBC 4.64 M/mm3 (3.60-5.2) 05/14/19 00:10 Hgb 14.2 GM/dL (10.7-15.3) 05/14/19 00:10 Hct 41.8 % (32.4-45.2) 05/14/19 00:10 MCV 90.0 fl (80-96) 05/14/19 00:10 MCH 30.6 pg (25.7-33.7) 05/14/19 00:10 MCHC 34.0 g/dl (32.0-36.0) 05/14/19 00:10 RDW 13.7 % (11.6-15.6) 05/14/19 00:10 Plt Count 265 K/MM3 (134-434) 05/14/19 00:10 MPV 8.6 fl (7.5-11.1) 05/14/19 00:10 Absolute Neuts (auto) 2.7 K/mm3 (1.5-8.0) 05/14/19 00:10 Neutrophils % 54.8 % (42.8-82.8) 05/14/19 00:10 Lymphocytes % 33.6 % (8-40) 05/14/19 00:10 Monocytes % 7.4 % (3.8-10.2) 05/14/19 00:10 Eosinophils % 3.4 % (0-4.5) D 05/14/19 00:10 Basophils % 0.8 % (0-2.0) 05/14/19 00:10 Nucleated RBC % 0 % (0-0) 05/14/19 00:10 No leukocytosis CMP Sodium 141 mmol/L (136-145) 05/14/19 00:10 Potassium 3.7 mmol/L (3.5-5.1) 05/14/19 00:10 Chloride 106 mmol/L (98-107) 05/14/19 00:10 Carbon Dioxide 27 mmol/L (21-32) 05/14/19 00:10 Anion Gap 9 MMOL/L (8-16) 05/14/19 00:10 BUN 10.3 mg/dL (7-18) 05/14/19 00:10 Creatinine 0.5 mg/dL (0.55-1.3) L 05/14/19 00:10 Est GFR (CKD-EPI)AfAm 120.22 05/14/19 00:10 Est GFR (CKD-EPI)NonAf 103.73 05/14/19 00:10 Random Glucose 110 mg/dL (74-106) H 05/14/19 00:10 Calcium 9.1 mg/dL (8.5-10.1) 05/14/19 00:10 Total Bilirubin 0.3 mg/dL (0.2-1) 05/14/19 00:10 AST 32 U/L (15-37) 05/14/19 00:10 ALT 55 U/L (13-61) 05/14/19 00:10 Alkaline Phosphatase 134 U/L (45-117) H 05/14/19 00:10 Creatine Kinase 111 U/L (26-192) 05/14/19 00:10 Troponin I < 0.02 ng/ml (0.00-0.05) 05/14/19 00:10 Total Protein 7.5 g/dl (6.4-8.2) 05/14/19 00:10 Albumin 4.2 g/dl (3.4-5.0) 05/14/19 00:10 Electrolytes unremarkable Cr normal No transaminitis Tpn undetectable CXR without acute pathology, my impression 05/15/19 01:09 second tpn negatve 05/15/19 03:19 Patient without chest pain Two troponins negative I have low suspicion for cardiac pathology at this time Patient to follow up with her physician Discharged with return precautions Discharge - Discharge Information Problems reviewed: Yes Clinical Impression/Diagnosis: Chest pain Qualifiers: Chest pain type: unspecified Qualified Code(s): R07.9 - Chest pain, unspecified Condition: Stable Disposition: HOME - Follow up/Referral Referrals: Angelita Bhagat MD [Primary Care Provider] - - Patient Discharge Instructions Patient Printed Discharge Instructions: DI for Atypical Chest Pain Additional Instructions: You came into the emergency department for chest pain. We performed blood work, an EKG, and an Xray which were within normal limits. Follow-up with your payroll analyst or primary care physician in the next 2-3 days to discuss this ED visit and to further evaluate your chest pain. Call and make an appointment at the number provided. Your workup is not complete until you do so. Call for emergency medicine services or go to the emergency room right away if you have symptoms of a heart attack, including: Chest pain, which may feel like a crushing weight A sense of fullness, squeezing, or pressure in the chest Rapid, irregular heartbeat Pain, tingling or numbness in the left shoulder and arm, the neck or jaw, or the right arm Sweating Nausea or vomiting Lightheadedness, weakness, or fainting Shortness of breath If you think you have an emergency, call for medical help right away. - Post Discharge Activity
[2019-05-14 23:11] VITALS: TEMP 97.9; BMI 27.2
[2019-05-14] MEDS ORDERED: FAMOTIDINE 20 MG/50 ML IVPB 20 MG/50 ML MG IVPB ONE (23:57)
[2019-05-14] MEDS ORDERED: ONDANSETRON 4 MG/2 ML VIAL IVPB ONE (23:57)
--- NOTE | 2019-05-15 00:05 | PDOC ---
Attending Attestation - Resident Resident Name: Shantell Tamayo - ED Attending Attestation I have performed the following: I have examined & evaluated the patient, The case was reviewed & discussed with the resident, I agree w/resident's findings & plan - HPI HPI: 05/15/19 00:01 Pt comes with nausea and epigastric pain. Pt had been diagnosed with H Pylorii in December and after treatment, she was just seen in late Apr by Dr. Edwina ROBERTS. She states that she has been nauseous but she has had no vomiting. She has no fever and no chills and no dysuria. She is complaint with all her meds. She doesn't work and no heavy lifting, and she has no chest pain. No SOB. - Physicial Exam PE: 05/15/19 00:03 Normal exam. Pt only has nausea at this time. She has chills also - Medical Decision Making 05/15/19 00:04 Labs EKG and rx with zofran in the ER 05/15/19 00:36 WBC normal 05/15/19 01:11 All labs are normal. 2nd trop will be sent; if normal then home with GI cocktail. Heart Score/ECG Review - ECG Intrepretation Rhythm: Regular Rhythm - [place]: Normal - P and CA Delta Wave(s) Present: No WPW: No - QRS Poor R Wave Progression: No Q Wave Present: No - ST and T Early Repolarization: Yes Non Specific ST-T Wave changes: Yes Flattened T Waves: Yes Prolonged Q-T Interval: No - ECG Impressions Normal ECG: Yes Non-specific ST Elevation: No Ischemic Changes: Yes (anterior flipped Ts; but this is old.) Bradycardia: No
[2019-05-15] MEDS ORDERED: ACETAMINOPHEN 1000 MG/100 ML VIAL (NON FORMULARY) IVPB ONE (00:08)
[2019-05-15] MEDS ORDERED: ONDANSETRON 4 MG/2 ML VIAL ONE (00:10)
[2019-05-15] MEDS ORDERED: FAMOTIDINE 20 MG/50 ML IVPB 20 MG/50 ML MG IVPB ONE (00:10)
[2019-05-15] MEDS ORDERED: ACETAMINOPHEN INJECTION 100 ML IVPB ONE (00:10)
[2019-05-15 00:20] LABS: BASO % 0.8 % (0-2.0); EOS % 3.4 % (0-4.5); HEMATOCRIT 41.8 % (32.4-45.2); HEMOGLOBIN 14.2 GM/dL (10.7-15.3); LYMPH % 33.6 % (8-40); MCH 30.6 pg (25.7-33.7); MEAN PLT VOLUME 8.6 fl (7.5-11.1); MONO % 7.4 % (3.8-10.2); NEUT % 54.8 % (42.8-82.8); PLATELET COUNT 265 K/MM3 (134-434); RBC 4.64 M/mm3 (3.60-5.2); RDW 13.7 % (11.6-15.6)
[2019-05-15 00:40] LABS: INR 1.08 (0.83-1.09); PROTHROMBIN TIME (PATIENT) 12.7 SEC (9.7-13.0)
[2019-05-15 00:56] LABS: ALBUMIN 4.2 g/dl (3.4-5.0); BILIRUBIN,TOTAL 0.3 mg/dL (0.2-1); BLOOD UREA NITROGEN 10.3 mg/dL (7-18); CALCIUM 9.1 mg/dL (8.5-10.1); CREATININE 0.5 mg/dL (0.55-1.3); POTASSIUM 3.7 mmol/L (3.5-5.1); TOT PROT 7.5 g/dl (6.4-8.2)
[2019-05-15 03:39] VITALS: BP 146/83; PULSE 81
--- NOTE | 2019-05-15 09:51 | EKG ---
Test Reason : Blood Pressure : / mmHG Vent. Rate : 081 BPM Atrial Rate : 081 BPM P-R Int : 194 ms QRS Dur : 080 ms QT Int : 382 ms P-R-T Axes : 052 053 043 degrees QTc Int : 443 ms NORMAL SINUS RHYTHM NONSPECIFIC ST ABNORMALITY ABNORMAL ECG WHEN COMPARED WITH ECG OF 15-JAN-2019 06:08, NO SIGNIFICANT CHANGE WAS FOUND Confirmed by VICKI ESPINOZA MD ([id number]) on 05/15/2019 9:51:19 AM Referred By: Confirmed By:VICKI ESPINOZA MD
== END 2019-05-15 03:35 | disposition home or self-care (01) ==
LOC: JER 22:48
PROC: 3E033GC Introduction of Other Therapeutic Substance into Peripheral Vein, Percutaneous Approach (ICD-10-PCS; principal; 2019-05-14)
PROC: 3E033GC Introduction of Other Therapeutic Substance into Peripheral Vein, Percutaneous Approach (ICD-10-PCS; 2019-05-14)
DX: R07.9 Chest pain, unspecified (principal); I10 Essential (primary) hypertension; E78.00 Pure hypercholesterolemia, unspecified; E03.9 Hypothyroidism, unspecified; Z79.82 Long term (current) use of aspirin
CPT/HCPCS: 36415; 71045-TC-FY; 80053; 82550; 84484; 85025; 85610; 93005; 93010; 96365; 96375; 99283-25; J0131